=== PATIENT | male | born 1925 | race Caucasian/White ===

== ENCOUNTER 2016-03-25 15:40 | Inpatient (IN) | payer OTHER, MEDICARE ==
--- NOTE | 2016-03-25 16:04 | CPEKG ---
Heart Rate: 145 RR Interval: 414 P-R Interval: 168 QRSD Interval: 134 QT Interval: 340 QTC Interval: 528 P Lapel: 0 QRS Lapel: 100 T Wave Lapel: -30 EKG Severity - ABNORMAL ECG - EKG Impression: SINUS TACHYCARDIA WITH IRREGULAR RATE 98-170 EKG Impression: RBBB AND LPFB Electronically Signed By: Dion Richardson 25-Mar-2016 22:42:19
--- NOTE | 2016-03-25 16:09 | EDPHY ---
HPI/HX/ROS/PE/MDM Narrative: CHIEF COMPLAINT: Dyspnea HPI: The patient is an 89 y/o male, with an extensive cardiac history, complaining of shortness of breath for a long time but worse in the last few days. He has a history of atrial fibrillation, CAD, severe aortic stenosis, COPD , and recent valve replacement by [facility]. He says, "I've felt bad for quite a while," but his dyspnea has worsened recently. He denies associated chest pain, palpitations, or fever. When asked if he is complaint with his medications, he states, "I don't know, I take so damn many." Further history limited as patient is a poor historian. REVIEW OF SYSTEMS: Aside from elements discussed in the HPI, a comprehensive 10-point review of systems was reviewed and is negative. PMH: Recent valve replacement, atrial fibrillation with RVR, hypertension, chronic combined systolic and diastolic CHF, COPD, CAD, severe aortic stenosis, suspected chronic respiratory failure, pacemaker Prior medical records reviewed including admission 01/15/16 for shortness of breath. SOCIAL HISTORY: Lives in [place] with granddaughter. Retired. 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 Crystal/"some lady in [place]" PHYSICAL EXAM: General:Patient is alert, in no acute distress. ENT:Eyes are normal to inspection. ENT inspection normal. Neck: Normal inspection. Full range of motion. Respiratory:No respiratory distress. Breath sounds normal bilaterally. Cardiovascular: Rapid irregular rate and rhythm. Strong peripheral pulses. Normal cap refill. Abdomen:The abdomen is nontender to palpation. There are no peritoneal signs. There are normal bowel sounds. Back: Normal to inspection. No tenderness to palpation. Skin: Normal color. No rash. Warm and dry. Extremities: 1-2+ pedal edema bilaterally. Full range of motion. Neuro: Oriented x3. Normal motor function. Normal sensory function. ED Course: IV established. Labs drawn including CBC, CHEM, troponin, BNP. 1L IV NS administered. Chest x-ray and EKG ordered. The 12 lead EKG was interpreted by myself. See hard copy and/or "tracemaster" electronic copy for interpretation. Study: Chest x-ray Indication: Dyspnea Results: Chest x-ray was obtained. The results of the study are 1. Probable congestive heart failure. 2. Pacemaker without pneumothorax. The study was read by the radiologist, Dr. Ozuna. I viewed the images myself on the PACS system. 1705: RN assessed patient and found his effective heart rate to be in the 60-70s , while his EKG shows rate around 120. Spoke with Dr. Alfonso, [facility], he was unable to locate records regarding patient's pacemaker. Patient has [employer] pacemaker. Will contact them for information. MDM: This patient presents with dyspnea. He is quite a poor historian and is unable to specifically characterized this feeling or rule out other potential associated symptoms. On exam, he is not hypoxic but does appear to be in rapid atrial fibrillation. His pacemaker was interrogated which reveals episodes of rapid ventricular rate. This is a ventricular lead only so it is unclear if the patient had any other additional atrial arrhythmias. 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 I see no evidence of pneumonia, pulmonary embolus , pneumothorax or florid CHF. I think the patient would benefit from an observation stay in the hospital to control his rapid rate. - Data Points Laboratory Results: Laboratory Results 03/25/16 16:00 03/25/16 16:00 03/25/16 16:00 WBC 5.21 10^3/uL (3.80-9.50) RBC 3.53 L 10^6/uL (4.40-6.38) Hgb 11.5 L g/dL (13.7-17.5) Hct 34.0 L % (40.0-51.0) MCV 96.3 fL (81.5-99.8) MCH 32.6 pg (27.9-34.1) MCHC 33.8 g/dL (32.4-36.7) RDW 17.3 H % (11.5-15.2) Plt Count 79 L 10^3/uL (150-400) MPV 11.4 fL (8.7-11.7) Neut % (Auto) 90.3 H % (39.3-74.2) Lymph % (Auto) 3.6 L % (15.0-45.0) Webster % (Auto) 4.4 L % (4.5-13.0) Eos % (Auto) 0.0 L % (0.6-7.6) Baso % (Auto) 0.2 L % (0.3-1.7) Nucleat RBC Rel Count 0.0 % (0.0-0.2) Absolute Neuts (auto) 4.70 10^3/uL (1.70-6.50) Absolute Lymphs (auto) 0.19 L 10^3/uL (1.00-3.00) Absolute Monos (auto) 0.23 L 10^3/uL (0.30-0.80) Absolute Eos (auto) 0.00 L 10^3/uL (0.03-0.40) Absolute Basos (auto) 0.01 L 10^3/uL (0.02-0.10) Absolute Nucleated RBC 0.00 10^3/uL (0-0.01) Immature Gran % 1.5 H % (0.0-1.1) Immature Gran # 0.08 10^3/uL (0.00-0.10) Sodium 139 mEq/L (134-144) Potassium 4.5 mEq/L (3.5-5.2) Chloride 99 mEq/L (97-110) Carbon Dioxide 25 mEq/l (22-31) Anion Gap 15 mEq/L (8-16) BUN 30 H mg/dL (7-23) Creatinine 0.9 mg/dL (0.7-1.3) Estimated GFR > 60 Glucose 217 H mg/dL (70-100) Calcium 8.9 mg/dL (8.5-10.4) Troponin I 0.015 ng/mL (0-0.034) NT-Pro-B Natriuret Pep 1900 H pg/mL (0-450) Medications Given: Discontinued Medications Diltiazem HCl (Cardizem 25 Mg/5 Ml Vial) 10 mg IVP EDNOW ONE Stop: 03/25/16 16:53 Last Admin: 03/25/16 17:53 Dose: Not Given Diltiazem HCl (Cardizem 25 Mg/5 Ml Vial) 10 mg IVP EDNOW ONE Stop: 03/25/16 19:32 Last Admin: 03/25/16 20:07 Dose: 10 mg Diltiazem HCl 125 mg/ Dextrose 150 mls @ 0 mls/hr IV EDNOW ONE; As Directed PRN Reason: Protocol Stop: 03/25/16 19:58 Last Admin: 03/25/16 20:29 Dose: 150 mls General Time Seen by Provider: 03/25/16 15:55 Initial Vital Signs: Initial Vital Signs Temperature (C) 36.6 C 03/25/16 15:44 Heart Rate 76 03/25/16 15:44 Respiratory Rate 18 03/25/16 15:44 Blood Pressure 127/99 H 03/25/16 15:44 O2 Sat (%) 93 03/25/16 15:44 O2 Delivery Mode Room Air O2 (L/minute) 2 Allergies/Adverse Reactions: No Known Allergies Allergy (Verified 03/25/16 15:41) Home Medications: Medication Instructions Recorded Acetaminophen [Tylenol 325mg (*)] 650 mg PO BID 01/15/16 Allopurinol 300 mg PO DAILY 01/15/16 Metoprolol Tartrate 50 mg PO BID 01/15/16 Terazosin HCl [Hytrin 5 MG (*)] 10 mg PO DAILY 01/15/16 predniSONE [predniSONE TAPER] 1 each PO .TAPER 01/15/16 Albuterol [Proventil Inhaler HFA 1 - 2 puffs IH Q4H #1 mdi 01/20/16 (*)] Tiotropium Inhaler [Spiriva 18 mcg IH DAILY #1 mdi 01/20/16 Handihaler] Warfarin Sodium [Coumadin 5MG (*)] 7.5 mg PO DAILY16 #30 tab 01/20/16 Aspirin [Aspirin 81mg (*)] 81 mg PO DAILY #30 tab 01/21/16 Atorvastatin Calcium [Lipitor 40 40 mg PO DAILY #30 tab 01/21/16 mg (*)] Doxycycline Hyclate 03/25/16 Lasix 03/25/16 Departure - Departure Report Scribed for: Dion Richardson Report Scribed by: Rola Jordan Date of Report: 03/25/16 Time of Report: 16:22 Physician Review and Approval Statement: Portions of this note were transcribed by an ED scribe. I personally performed the history, physical exam, and medical decision making; and confirm the accuracy of the information in the transcribed note.
[2016-03-25 16:12] LABS: % IMMATURE GRANULYOCYTES 1.5 % (0.0-1.1); ABSOLUTE IMMATURE GRANULOCYTES 0.08 10^3/uL (0.00-0.10); ADD DIFF? NO; ADD MORPH? NO; ADD SCAN? NO; ATYPICAL LYMPHOCYTE FLAG 0 (0-99); FRAGMENT RBC FLAG 0 (0-99); HEMOGLOBIN 11.5 g/dL (13.7-17.5); LEFT SHIFT FLG 40 (0-99); LIPEMIA HEMOLYSIS FLAG 90 (0-99); MEAN CELL HEMOGLOBIN 32.6 pg (27.9-34.1); MEAN CELL HEMOGLOBIN CONCENTR. 33.8 g/dL (32.4-36.7); MEAN CELL VOLUME 96.3 fL (81.5-99.8); MEAN PLATELET VOLUME 11.4 fL (8.7-11.7); PLATELET CLUMPS FLAG 0 (0-99); PLATELET COUNT 79 10^3/uL (150-400); RED BLOOD CELL COUNT 3.53 10^6/uL (4.40-6.38); RED CELL DISTRIBUTION WIDTH 17.3 % (11.5-15.2)
[2016-03-25 16:22] LABS: ANION GAP 15 mEq/L (8-16); CALCIUM 8.9 mg/dL (8.5-10.4); CARBON DIOXIDE 25 mEq/l (22-31); CHLORIDE 99 mEq/L (97-110); CREATININE 0.9 mg/dL (0.7-1.3); GLOMERULAR FILTRATION RATE > 60; GLUCOSE 217 mg/dL (70-100); POTASSIUM 4.5 mEq/L (3.5-5.2); SODIUM 139 mEq/L (134-144)
[2016-03-25 16:34] LABS: TROPONIN I 0.015 ng/mL (0-0.034)
[2016-03-25] MEDS ORDERED: DILTIAZEM 25 MG/5 ML VIAL IVP ONE ×2 (16:52→19:31)
--- NOTE | 2016-03-25 17:07 | CPEKG ---
Heart Rate: 128 RR Interval: 469 P-R Interval: 118 QRSD Interval: 140 QT Interval: 356 QTC Interval: 520 P Naylor: 0 QRS Naylor: 98 T Wave Naylor: -24 EKG Severity - ABNORMAL ECG - EKG Impression: SINUS TACHYCARDIA EKG Impression: RBBB AND LPFB Electronically Signed By: Dion Richardson 25-Mar-2016 22:41:54
--- NOTE | 2016-03-25 17:46 | DX ---
Chest, Two Views at 1557 hours History: Chest pain. Comparison: December 2015 Findings: Cardiac silhouette is moderately enlarged. Left chest wall. Unipolar pacemaker in the right ventricle. Bilateral shoulder arthroplasties. Increased interstitial markings suggesting interstitia l pulmonary edema. No pleural effusion. Thoracolumbar kyphosis. Stent overlying the heart on the late ral view not definitely identified on AP upright view. Impression: 1. Probable congestive heart failure. 2. Pacemaker without pneumothorax.
[2016-03-25] MEDS ORDERED: DILTIAZEM 125 MG in D5W 125 ML IV ONE (19:57)
[2016-03-25] MEDS ORDERED: ONDANSETRON 4 MG/2 ML VIAL IVP PRN (21:30)
[2016-03-25] MEDS ORDERED: ONDANSETRON DISINTEGRATING 4 MG TAB PO PRN (21:30)
[2016-03-25] MEDS ORDERED: ACETAMINOPHEN 325 MG TAB PO PRN (21:30)
[2016-03-25] MEDS ORDERED: FUROSEMIDE 20 MG/2 ML VIAL IVP ONE (21:41)
[2016-03-25] MEDS ORDERED: DILTIAZEM 125 MG in D5W 125 ML IV SCH (22:00)
--- NOTE | 2016-03-25 22:03 | GHP ---
[f rep st] HISTORY AND PHYSICAL DATE OF ADMISSION: 03/25/2016 CHIEF COMPLAINT: Shortness of breath and weakness. HISTORY OF PRESENT ILLNESS: This is an 89-year-old male who has a history of atrial fibrillation for many years. He also has a history of aortic stenosis and in early February had a TAVR procedure. Th is was followed by a pacemaker placement 2 weeks later. These were both done I believe at [facility] , and then was at [facility]. He then apparently went to rehab, and then chavez s only been home for a few days, but now comes in with shortness of breath with exertion and at rest. He is also complaining of some worsening lower extremity edema. No chest pain. He does not notice his heart racing or any heart palpitations. No fevers or chills or cough. REVIEW OF SYSTEMS: A 10-point review of systems is negative. PAST MEDICAL HISTORY: 1. Aortic stenosis with recent TAVR procedure. 2. Atrial fibrillation with previous hospitalizations for rapid ventricular response. 3. Hypertension. 4. Diastolic dysfunction. 5. Chronic obstructive pulmonary disease. 6. History of coronary artery disease status post stenting. MEDICATIONS: Reviewed. ALLERGIES: None. FAMILY HISTORY: Both parents are . SOCIAL HISTORY: No smoking or alcohol, lives with his granddaughter. PHYSICAL EXAM: VITAL SIGNS: Afebrile, blood pressure is 130/77, heart rate is 122, oxygen saturatio n 92% on 2 L. GENERAL: Patient is well developed in no apparent distress. HEENT: Anicteric sclerae. Extraocular movements intact. Moist mucous membranes. NECK: Supple. No thyromegaly. LUNGS: Good effort. Clear to auscultation, but decreased breath sounds. CARDIOVASCULAR: Irregularly irregular. Tachycardic. No murmurs, rubs, or gallops. ABDOMEN: Positive bowel sounds. Soft, nontender, nondistended. No hepatosplenomegaly. EXTREMITIES: 1+ pitting edema. NEUROLOGIC: Alert and oriented x3. Moving all 4 extremities equally. PSYCH: Normal mood and affect. LABS: White count 5, hemoglobin 11, platelets are 79, but this appears to be chronically low. Chemi stry shows creatinine 0.9. BNP is 1900. Troponin 0.015. Chest x-ray shows probable CHF. EKG perso grupo reviewed and interpreted shows right bundle branch block with irregular tachycardia. ASSESSMENT: An 89-year-old male with a history of recent transcatheter aortic valve replacement proc edure and pacemaker placement presenting with rapid atrial fibrillation. PLAN: 1. Atrial fibrillation with rapid ventricular response. Will continue diltiazem. 2. Acute on chronic diastolic heart failure. Will give Lasix. 3. Recent TAVR procedure. Will probably need to get old records from [facility] and perhaps repea t echocardiogram here. 4. History of coronary artery disease. Troponin is not elevated at this time. Will check it again in the morning. 5. History of COPD, although has decreased breath sounds, and he is not wheezing. 6. Patient is a DNR. /[id number]/MODL
[2016-03-26 05:30] LABS: % IMMATURE GRANULYOCYTES 1.6 % (0.0-1.1); ABSOLUTE IMMATURE GRANULOCYTES 0.11 10^3/uL (0.00-0.10); ADD DIFF? NO; ADD MORPH? NO; ADD SCAN? NO; ATYPICAL LYMPHOCYTE FLAG 0 (0-99); FRAGMENT RBC FLAG 0 (0-99); HEMATOCRIT 33.1 % (40.0-51.0); HEMOGLOBIN 11.1 g/dL (13.7-17.5); LEFT SHIFT FLG 70 (0-99); LIPEMIA HEMOLYSIS FLAG 80 (0-99); MEAN CELL HEMOGLOBIN 31.9 pg (27.9-34.1); MEAN CELL HEMOGLOBIN CONCENTR. 33.5 g/dL (32.4-36.7); MEAN CELL VOLUME 95.1 fL (81.5-99.8); MEAN PLATELET VOLUME 10.4 fL (8.7-11.7); PLATELET CLUMPS FLAG 0 (0-99); PLATELET COUNT 76 10^3/uL (150-400); RED BLOOD CELL COUNT 3.48 10^6/uL (4.40-6.38); RED CELL DISTRIBUTION WIDTH 17.2 % (11.5-15.2)
[2016-03-26 05:39] LABS: INR 1.26 (0.83-1.16); PROTIME(PATIENT) 15.8 SEC (12.0-15.0)
[2016-03-26 05:47] LABS: ALANINE AMINOTRANSFERASE 35 IU/L (21-72); ALBUMIN 3.7 g/dL (3.5-5.0); ANION GAP 12 mEq/L (8-16); ASPARTATE AMINOTRANSFERASE 22 IU/L (17-59); BILIRUBIN,TOTAL 1.5 mg/dL (0.1-1.4); CALCIUM 8.7 mg/dL (8.5-10.4); CARBON DIOXIDE 29 mEq/l (22-31); CHLORIDE 99 mEq/L (97-110); CREATININE 0.9 mg/dL (0.7-1.3); GLOMERULAR FILTRATION RATE > 60; GLUCOSE 106 mg/dL (70-100); POTASSIUM 3.9 mEq/L (3.5-5.2); SODIUM 140 mEq/L (134-144); TOTAL PROTEIN 6.3 g/dL (6.3-8.2)
[2016-03-26 05:55] LABS: TROPONIN I 0.015 ng/mL (0-0.034)
[2016-03-26] MEDS ORDERED: FUROSEMIDE 20 MG/2 ML VIAL IVP SCH (09:00)
[2016-03-26] MEDS: ENOXAPARIN 40 MG/0.4 ML SYR SC SCH (09:58)
[2016-03-26] MEDS ORDERED: MAGNESIUM HYDROXIDE 30 ML UDCUP PO PRN (10:19)
[2016-03-26] MEDS ORDERED: ACETAMINOPHEN 325 MG TAB PO PRN (10:19)
--- NOTE | 2016-03-26 10:36 | ECHO ---
[id number] + + [id number] : : [place] [id number] : : [phone] + + Adult Echocardiographic Report + + :Name: SALUD STANLEY GStudy Date: 03/26/2016 08:32 AM BP: 124/75 mmHg : : Hospital Admission Number: [id number] Loc ation: 214: :: 1925 Gender: Male Height: 68 in : :Age: 89 yrs Race: WH Weight: 260 lb : :Reason For Study: CHF : : BSA: 2.3 me ters2 : :History: S/P TAVR and pacemaker : + + MMode/2D Measurements & Calculations IVSd: 1.4 cm LVIDd: 4.7 cm FS: 41.6 % Ao root diam: 3.7 cm LVPWd: 1.2 cm LVIDs: 2.7 cm EDV(Teich): 100.4 ml ESV(Teich): 27.5 ml EF(Teich): 72.6 % LVOT diam: 2.2 cm LVOT area: 3.8 cm2 Normal Measurement Values: + + :LVIDd (3.5-5.7cm) IVSd (0.6-1.1cm) LVPWd (0.6-1.1cm) Aortic Root (2.0-3.7cm)Left Atrium (1.5-4.0cm): :LV Vol(d) (76-115ml) LV Vol(s) (29-48ml) Ejec Fraction (50-65%)PV Joshua (0.6- 1.2m/s) TV Joshua (0.4-1.0m/s) : :MV E Joshua (0.8-1.0m/s)MV A Joshua (0.3-1.0m/s)LVOT Joshua (0.7-1.2m/s) Asc Ao Joshua ( 0.9-1.8m/s) : + + Doppler Measurements & Calculations MV E max joshua: Ao mean PG: LV V1 mean PG: SV(LVOT): 122.9 cm/sec 12.2 mmHg 1.9 mmHg 56.2 ml Ao V2 mean: LV V1 mean: 168.2 cm/sec 65.0 cm/sec Ao V2 VTI: 37.7 cm LV V1 VTI: 14.9 cm OLIVIA(I,D): 1.5 cm2 PA V2 max: TR max joshua: 158.1 cm/sec 278.3 cm/sec PA max P.1 mmHg TR max P.2 mmHg RAP systole: 10.0 mmHg RVSP(TR): 41.2 mmHg Left Ventricle The left ventricle is normal in size and function. There is moderate concentric left ventricular hypertrophy. Ejection Fraction = 65-70%. Diastolic Function Indeterminate due to afib.. No regional wall motion abnormalities noted. Right Ventricle The right ventricle is grossly normal size. There is a pacemaker lead in the right ventricle. Grossly normal systolic function. Atria The left atrium is severely dilated. The Left Atrial Volume is 74 ml/m2. The right atrium is mildly dilated. A dilated inferior vena cava suggests increased right atrial pressure. Mitral Valve The mitral valve is normal in structure and function. There is mild mitral annular calcification. There is no mitral valve stenosis. There is trace mitral regurgitation. Tricuspid Valve The tricuspid valve is normal in structure and function. There is no tricuspid stenosis. There is trace to mild tricuspid regurgitation. Right ventricular systolic pressure is 41mmHg. There is Doppler evidence for mild to moderate pulmonary hypertension. Aortic Valve S/P TAVR. Mean gradient across the valve 12mmHg and peak gradient 18-20mmHg. Trace to mild aortic regurgitation. Pulmonic Valve The pulmonic valve is not well visualized. There is no pulmonic valvular regurgitation. Great Vessels Mild aortic root dilatation. Pericardium/Pleural Fat pad versus trivial pericardial effusion. Conclusion The study was technically difficult. Patients heart rate during study 103-120bpm. The left ventricle is normal in size and function. There is moderate concentric left ventricular hypertrophy. Ejection Fraction = 65-70%. Diastolic Function Indeterminate due to afib.. The left atrium is severely dilated. The Left Atrial Volume is 74 ml/m2. The right atrium is mildly dilated. A dilated inferior vena cava suggests increased right atrial pressure. There is trace mitral regurgitation. There is trace to mild tricuspid regurgitation. Right ventricular systolic pressure is 41mmHg. There is Doppler evidence for mild to moderate pulmonary hypertension. S/P TAVR. Mean gradient across the valve 12mmHg and peak gradient 18-20mmHg. Trace to mild aortic regurgitation. Mild aortic root dilatation. Fat pad versus trivial pericardial effusion. Final Reading Physician: Nadiya Beck signed on 03/26/2016 10:35 AM Ordering Physician: Kolby Nath Performed By: Lorena Meng
[2016-03-26] MEDS: ALBUTEROL 3 ML DEYVIAL IH PRN ×3 (11:02→22:25)
[2016-03-26] MEDS: predniSONE 10 MG TAB PO SCH (11:15)
[2016-03-26] MEDS: TERAZOSIN HCL 5 MG CAP PO SCH (11:15)
[2016-03-26] MEDS: METOPROLOL TARTRATE 50 MG TAB PO SCH ×2 (11:15→20:40)
--- NOTE | 2016-03-26 11:16 | HOSPPROG ---
Hospitalist Progress Note Assessment/Plan: 89 yo M w AF, s/p TAVR AF: rapid improved on dilt gtt has edema but unclear if wet- may be dry 1. ween dilt gtt 2. stop IV diuretics 3. resume po diuretics s/p TAVR: looks good on echo cough: productive cough w clear cxr (interp by me) add mucinex proph: lmwh dispo: inpt Subjective: case discussed w dr carnes. admit ekg w rapid AF (interp by me) Objective: Vital Signs Temp Pulse Resp BP Pulse Ox 36.3 C 122 H 21 H 124/75 H 90 L 03/26/16 07:05 03/26/16 08:04 03/26/16 07:05 03/26/16 07:05 03/26/16 07:05 Laboratory Results 03/26/16 05:05 03/26/16 05:05 03/25/16 03/26/16 03/27/16 05:59 05:59 05:59 Intake Total 520 360 Output Total 1500 175 Balance -980 185 PT 15.8 SEC (12.0-15.0) H 03/26/16 05:05 INR 1.26 (0.83-1.16) H 03/26/16 05:05 - Physical Exam Constitutional: no apparent distress, appears nourished Eyes: PERRL, anicteric sclera Ears, Nose, Mouth, Throat: moist mucous membranes, hearing normal Cardiovascular: irregularly irregular, No systolic murmur Respiratory: no respiratory distress, no rales or rhonchi Gastrointestinal: normoactive bowel sounds, soft, non-tender abdomen Genitourinary: No rodriguez in urethra Skin: warm, normal color Musculoskeletal: full muscle strength, no muscle tenderness Neurologic: AAOx3 Psychiatric: interacting appropriately Lymph, Heme, Immunologic: no cervical LAD ICD10 Worksheet Patient Problems: Problems Problem Status Diagnosed Acute exacerbation of congestive heart failure Acute Atrial fibrillation with RVR Acute Elevated troponin Acute
[2016-03-26] MEDS: ALBUTEROL 60 PUFFS/8 GM MDI IH SCH ×4 (11:17→22:25)
[2016-03-26] MEDS: TIOTROPIUM INHALER 18 MCG/DOSE 5 DOSE/MDI IH SCH (11:17)
--- NOTE | 2016-03-26 12:51 | PDCARCONS ---
Cardiology Consult Reason for Consult: congestive heart failure Chief Complaint: shortness of breath, PND, needs to sleep in a chair Requesting Physician: Dr. Orlando History of Present Illness: patient is an 89-year-old male well known to our service. He is status post transcutaneous aortic valve replacement done in the setting of worsening heart failure. Coronary angiogram done 01/15/2016 revealed branch vessel coronary artery disease with ejection fraction of 35-40%. He was felt to have low output aortic valve stenosis and underwent a successful transcutaneous replacement. Since that time he has struggled with shortness of breath. He comes into the hospital with paroxysmal nocturnal dyspnea and the need to sleep in a chair. He denies chest pain. He has had no syncope or near syncope. He denies fever or chills. He does have a significant cough with wheezing. This is nonproductive. medications in the hospital Medications Generic Name Dose Route Start Last Admin Trade Name Freq PRN Reason Stop Dose Admin Terazosin HCl 10 mg 03/26/16 10:30 03/26/16 11:15 Hytrin PO 09/22/16 10:29 10 mg DAILY [facility] Enoxaparin Sodium 40 mg 03/26/16 09:00 03/26/16 09:58 Lovenox SC 09/22/16 08:59 40 mg DAILY [facility] Furosemide 40 mg 03/27/16 09:00 Lasix PO 09/23/16 08:59 DAILY [facility] Metoprolol Tartrate 50 mg 03/26/16 10:30 03/26/16 11:15 Lopressor PO 09/22/16 10:29 50 mg BID [facility] Prednisone 10 mg 03/26/16 10:30 03/26/16 11:15 Prednisone PO 09/22/16 10:29 10 mg DAILY [facility] Albuterol 3 ml 03/26/16 10:19 03/26/16 11:02 Proventil Neb 09/22/16 10:18 3 ml QID PRN Short of Breath/Dyspnea Albuterol 1 - 2 puffs 03/26/16 10:30 03/26/16 11:17 Proventil Inhaler 09/22/16 10:29 Not Given Q4H [facility] Tiotropium [place] 18 mcg 03/26/16 10:30 03/26/16 11:17 Spiriva Handihaler 09/22/16 10:29 Not Given DAILY [facility] History Information - Allergies/Home Medication List Allergies/Adverse Reactions: No Known Allergies Allergy (Verified 03/25/16 15:41) Home Medications: Acetaminophen [Tylenol 325mg (*)] 650 mg PO Q4H PRN 01/15/16 [Last Taken ] Terazosin HCl [Hytrin 5 MG (*)] 10 mg PO DAILY 01/15/16 [Last Taken 01/15/16] Furosemide [Lasix 40 MG (*)] 40 mg PO DAILY 03/25/16 [Last Taken Unknown] Albuterol [Proventil Neb] 3 ml IH QID PRN 03/26/16 [Last Taken Unknown] Allopurinol [Allopurinol 300 MG (RX)] 300 mg PO DAILY 03/26/16 [Last Taken Unknown] Docusate Sodium [Colace 100 MG (*)] 100 mg PO BID 03/26/16 [Last Taken Unknown] Magnesium Hydroxide [Milk of Magnesia] 30 ml PO PRN PRN 03/26/16 [Last Taken Unknown] Metoprolol Tartrate [Lopressor 50 mg (*)] 50 mg PO BID 03/26/16 [Last Taken Unknown] Potassium Cl [Klor-Con] 10 meq PO DAILY 03/26/16 [Last Taken Unknown] predniSONE [Prednisone] 10 mg PO DAILY 03/26/16 [Last Taken Unknown] I have personally reviewed and updated: family history, medical history, social history, surgical history - Past Medical History atrial fibrillation, coronary artery disease, CHF, COPD - Surgical History Reports: coronary stent Additional surgical history: status post total hip replacement 2006. History of rotator cuff repair. History of PCI of the circumflex 1998. History of transcutaneous aortic valve 2016. - Family History Positive for: non-pertinent - Social History Smoking Status: Former smoker Cardiac History - Cardiac History Past Cardiac History: CAD, PCI, AVR Cardiac Risk Factors: hypertension (>140/90), lipidemia, age > 65, male Associated Symptoms: cough, shortness of breath, weakness Age in Years: 75 or older Sex: Male Congestive Heart Failure History: Yes Hypertension History: Yes Physical Exam Temp Pulse Resp BP Pulse Ox 36.3 C 118 H 23 H 135/64 H 93 03/26/16 07:05 03/26/16 11:33 03/26/16 11:33 03/26/16 11:33 03/26/16 11:33 O2 (L/minute) 3 Constitutional: chronically ill appearing, obese Eyes: pale conjunctiva Ears, Nose, Mouth, Throat: moist mucous membranes Cardiovascular: irregularly irregular, No JVD Peripheral Pulses: 1+: carotid (R), carotid (L) Respiratory: reduced air movement, expiratory wheeze, inspiratory crackles, bronchial breath sounds, rhonchi Gastrointestinal: normoactive bowel sounds, soft, non-tender abdomen Genitourinary: no bladder fullness Skin: warm Musculoskeletal: full muscle strength Neurologic: AAOx3 Psychiatric: interacting appropriately, not anxious Lymph, Heme, Immunologic: no cervical LAD, no supraclavicular LAD Lab and Imaging 03/26/16 05:05 03/26/16 05:05 WBC 6.72 10^3/uL (3.80-9.50) 03/26/16 05:05 RBC 3.48 10^6/uL (4.40-6.38) L 03/26/16 05:05 Hgb 11.1 g/dL (13.7-17.5) L 03/26/16 05:05 Hct 33.1 % (40.0-51.0) L 03/26/16 05:05 MCV 95.1 fL (81.5-99.8) 03/26/16 05:05 MCH 31.9 pg (27.9-34.1) 03/26/16 05:05 MCHC 33.5 g/dL (32.4-36.7) 03/26/16 05:05 RDW 17.2 % (11.5-15.2) H 03/26/16 05:05 Plt Count 76 10^3/uL (150-400) L 03/26/16 05:05 MPV 10.4 fL (8.7-11.7) 03/26/16 05:05 Neut % (Auto) 71.6 % (39.3-74.2) 03/26/16 05:05 Lymph % (Auto) 14.1 % (15.0-45.0) L 03/26/16 05:05 Castro % (Auto) 12.2 % (4.5-13.0) 03/26/16 05:05 Eos % (Auto) 0.4 % (0.6-7.6) L 03/26/16 05:05 Baso % (Auto) 0.1 % (0.3-1.7) L 03/26/16 05:05 Nucleat RBC Rel Count 0.0 % (0.0-0.2) 03/26/16 05:05 Absolute Neuts (auto) 4.80 10^3/uL (1.70-6.50) 03/26/16 05:05 Absolute Lymphs (auto) 0.95 10^3/uL (1.00-3.00) L 03/26/16 05:05 Absolute Monos (auto) 0.82 10^3/uL (0.30-0.80) H 03/26/16 05:05 Absolute Eos (auto) 0.03 10^3/uL (0.03-0.40) 03/26/16 05:05 Absolute Basos (auto) 0.01 10^3/uL (0.02-0.10) L 03/26/16 05:05 Absolute Nucleated RBC 0.00 10^3/uL (0-0.01) 03/26/16 05:05 Immature Gran % 1.6 % (0.0-1.1) H 03/26/16 05:05 Immature Gran # 0.11 10^3/uL (0.00-0.10) H 03/26/16 05:05 PT 15.8 SEC (12.0-15.0) H 03/26/16 05:05 INR 1.26 (0.83-1.16) H 03/26/16 05:05 Sodium 140 mEq/L (134-144) 03/26/16 05:05 Potassium 3.9 mEq/L (3.5-5.2) 03/26/16 05:05 Chloride 99 mEq/L (97-110) 03/26/16 05:05 Carbon Dioxide 29 mEq/l (22-31) 03/26/16 05:05 Anion Gap 12 mEq/L (8-16) 03/26/16 05:05 BUN 30 mg/dL (7-23) H 03/26/16 05:05 Creatinine 0.9 mg/dL (0.7-1.3) 03/26/16 05:05 Estimated GFR > 60 03/26/16 05:05 Glucose 106 mg/dL (70-100) H 03/26/16 05:05 Calcium 8.7 mg/dL (8.5-10.4) 03/26/16 05:05 Total Bilirubin 1.5 mg/dL (0.1-1.4) H 03/26/16 05:05 AST 22 IU/L (17-59) 03/26/16 05:05 ALT 35 IU/L (21-72) 03/26/16 05:05 Alkaline Phosphatase 89 IU/L (38-126) 03/26/16 05:05 Troponin I 0.015 ng/mL (0-0.034) 03/26/16 05:05 NT-Pro-B Natriuret Pep 1900 pg/mL (0-450) H 03/25/16 16:00 Total Protein 6.3 g/dL (6.3-8.2) 03/26/16 05:05 Albumin 3.7 g/dL (3.5-5.0) 03/26/16 05:05 Laboratory Tests 03/25/16 03/26/16 16:00 05:05 Sodium 139 140 Creatinine 0.9 Troponin I 0.015 0.015 NT-Pro-B Natriuret Pep 1900 H Chest X-ray Interpretation: other ( cardiomegaly, pacemaker with single lead. Bilateral mild infiltrates with elevated right hemidiaphragm) EKG additional interpertation: atrial fibrillation with bifascicular block Echocardiogram: normally functioning transcutaneous aortic valve. Hyperdynamic left ventricle with normalized ejection fraction. Biatrial enlargement. A/P Assessment: Impression: 89-year-old male with respiratory complaints of dry cough, shortness of breath, new onset orthopnea. Examination suggest primary respiratory etiology with likely exacerbation of chronic bronchitis with decreased breath movement expiratory inspiratory wheezing and rhonchi. Echocardiogram shows dramatic improvement in left ventricular systolic function to the normal range. He has atrial fibrillation which was not well rate controlled during initial presentation but is improving slowly. There is no evidence of acute coronary syndrome. Plan: Recommendations are for aggressive treatment for underlying COPD with consideration for steroid taper, continued beta agonist therapy with clinical follow-up. Patient is clearly at risk for now diastolic heart failure versus heart failure related to small vessel disease in the setting of recent respiratory illness. Recommendations are for gentle diuresis. Continued secondary prevention for underlying coronary disease. Anticoagulation for chronic atrial fibrillation. He is not currently on statin therapy despite known longstanding coronary artery disease, diabetes, dyslipidemia. Will reassess lipids. Not sure the role in this 89-year-old male.
[2016-03-26 20:29] LABS: ALKALINE PHOSPHATASE 42 IU/L (38-126)
[2016-03-26] MEDS: DOCUSATE SODIUM 100 MG CAP PO SCH (20:41)
[2016-03-27] MEDS: ALBUTEROL 60 PUFFS/8 GM MDI IH SCH ×6 (02:36→21:29)
[2016-03-27] MEDS: METOPROLOL TARTRATE 50 MG TAB PO SCH ×2 (08:43→21:47)
[2016-03-27] MEDS: FUROSEMIDE 40 MG TAB PO SCH (08:46)
[2016-03-27] MEDS: DOCUSATE SODIUM 100 MG CAP PO SCH ×2 (08:47→21:47)
[2016-03-27] MEDS: predniSONE 10 MG TAB PO SCH (08:47)
[2016-03-27] MEDS: TERAZOSIN HCL 5 MG CAP PO SCH (08:47)
[2016-03-27] MEDS: POTASSIUM CL 10 MEQ TAB PO SCH (08:48)
[2016-03-27] MEDS: ENOXAPARIN 40 MG/0.4 ML SYR SC SCH (08:48)
[2016-03-27] MEDS: ALLOPURINOL 300 MG TAB PO SCH (08:48)
[2016-03-27] MEDS: ALBUTEROL 3 ML DEYVIAL IH PRN ×3 (08:50→16:59)
[2016-03-27] MEDS: TIOTROPIUM INHALER 18 MCG/DOSE 5 DOSE/MDI IH SCH (08:52)
[2016-03-27] MEDS ORDERED: FUROSEMIDE 40 MG TAB PO SCH (09:00)
[2016-03-27 10:06] LABS: ANION GAP 15 mEq/L (8-16); CALCIUM 8.8 mg/dL (8.5-10.4); CARBON DIOXIDE 25 mEq/l (22-31); CHLORIDE 96 mEq/L (97-110); CREATININE 0.8 mg/dL (0.7-1.3); GLOMERULAR FILTRATION RATE > 60; GLUCOSE 188 mg/dL (70-100); POTASSIUM 3.8 mEq/L (3.5-5.2); SODIUM 136 mEq/L (134-144)
[2016-03-27] MEDS ORDERED: METOPROLOL TARTRATE 25 MG TAB PO ONE (14:54)
[2016-03-27] MEDS ORDERED: predniSONE 20 MG TAB PO ONE (14:54)
--- NOTE | 2016-03-27 14:58 | HOSPPROG ---
Hospitalist Progress Note Assessment/Plan: 89 yo M w AF, s/p TAVR AF: intermittently rapid posibly 2/2 underlying pulm process give add'l po metoprolol today follow s/p TAVR: looks good on echo cough: productive cough w clear cxr (interp by me) add mucinex given copd, add doxy, increase steroids proph: lmwh dispo: inpt Subjective: tele: AF, intermittently rapid (interp by me). case d/w dr carnes Objective: Vital Signs Temp Pulse Resp BP Pulse Ox 36.5 C 121 H 22 H 115/74 93 03/27/16 11:42 03/27/16 12:34 03/27/16 12:15 03/27/16 11:42 03/27/16 12:34 Laboratory Results 03/26/16 05:05 03/27/16 09:25 03/26/16 03/27/16 03/28/16 05:59 05:59 05:59 Intake Total 520 1530 Output Total 1500 2020 775 Balance -980 -490 -775 PT 15.8 SEC (12.0-15.0) H 03/26/16 05:05 INR 1.26 (0.83-1.16) H 03/26/16 05:05 - Physical Exam Constitutional: no apparent distress, appears nourished Eyes: PERRL, anicteric sclera Ears, Nose, Mouth, Throat: moist mucous membranes, hearing normal Cardiovascular: irregularly irregular, No systolic murmur Respiratory: other (rhoncorous w good air movement, no wheeze) Gastrointestinal: normoactive bowel sounds, soft, non-tender abdomen Genitourinary: No rodriguez in urethra Skin: warm, normal color Musculoskeletal: full muscle strength, other (minimal edema) Neurologic: AAOx3 ICD10 Worksheet Patient Problems: Problems Problem Status Diagnosed Acute exacerbation of congestive heart failure Acute Atrial fibrillation with RVR Acute Elevated troponin Acute
[2016-03-27] MEDS: DOXYCYCLINE HYCLATE 100 MG CAP/TAB PO SCH ×2 (15:17→21:47)
--- NOTE | 2016-03-27 16:05 | SOAPPROG ---
SOAP Progress Note Assessment/Plan: Assessment: 1. Respiratory failure secondary to COPD. 2. status post transcutaneous aortic valve replacement. 3. Coronary artery disease. 4. History of systolic dysfunction with normalization of ejection fraction post valve replacement. 5. Chronic atrial fibrillation. Impression: Slow and steady improvement. Difficult morning with continued respiratory difficulties. Heart rate response appropriate for degree of distress. Normally functioning aortic valve by ECHO. Normalized LV systolic function. Continue aggressive medical therapy with clinical follow-up . Will add low-dose Digoxin to enhance rate control. considerations for low-dose diltiazem. Will avoid increasing beta-blaine due to respiratory difficulty. 03/27/16 16:02 03/27/16 16:04 Subjective: feeling a bit better this afternoon. This morning patient was significantly short of breath. He denied chest pain. He continues to have orthopnea. He has had no syncope or near syncope. He has no palpitations. Objective: Vital Signs Temp Pulse Resp BP Pulse Ox 36.8 C 144 H 20 131/95 H 93 03/27/16 15:20 03/27/16 15:20 03/27/16 15:20 03/27/16 15:20 03/27/16 15:20 Laboratory Results 03/26/16 05:05 03/27/16 09:25 03/26/16 03/27/16 03/28/16 05:59 05:59 05:59 Intake Total 520 1530 Output Total 1500 2020 1125 Balance -980 -490 -1125 PT 15.8 SEC (12.0-15.0) H 03/26/16 05:05 INR 1.26 (0.83-1.16) H 03/26/16 05:05 Medications Generic Name Dose Route Start Last Admin Trade Name Freq PRN Reason Stop Dose Admin Albuterol 1 - 2 puffs 03/26/16 10:30 03/27/16 12:14 Proventil Inhaler IH 09/22/16 10:29 Not Given Q4H [facility] Furosemide 40 mg 03/27/16 09:00 03/27/16 08:46 Lasix PO 09/23/16 08:59 40 mg DAILY [facility] Metoprolol Tartrate 50 mg 03/26/16 10:30 03/27/16 08:43 Lopressor PO 09/22/16 10:29 50 mg BID [facility] Albuterol 3 ml 03/26/16 10:19 03/27/16 12:11 Proventil Neb IH 09/22/16 10:18 3 ml QID PRN Short of Breath/Dyspnea Enoxaparin Sodium 40 mg 03/26/16 09:00 03/27/16 08:48 Lovenox SC 09/22/16 08:59 40 mg DAILY [facility] ICD10 Worksheet Patient Problems: Problems Problem Status Diagnosed Acute exacerbation of congestive heart failure Acute Atrial fibrillation with RVR Acute Elevated troponin Acute Review of Systems - Review of Systems Constitutional: weakness. denies: chills, fever Respiratory: cough, shortness of breath, wheezing Cardiac: no symptoms reported Gastrointestinal/Abdominal: no symptoms reported Genitourinary: no symptoms
[2016-03-27] MEDS: DILTIAZEM 30 MG TAB PO SCH ×2 (18:04→23:52)
[2016-03-28] MEDS: ALBUTEROL 60 PUFFS/8 GM MDI IH SCH ×6 (01:07→20:35)
[2016-03-28] MEDS: DILTIAZEM 30 MG TAB PO SCH ×3 (04:47→18:01)
[2016-03-28 05:12] LABS: % IMMATURE GRANULYOCYTES 2.9 % (0.0-1.1); ABSOLUTE IMMATURE GRANULOCYTES 0.11 10^3/uL (0.00-0.10); ADD DIFF? NO; ADD MORPH? NO; ADD SCAN? NO; ATYPICAL LYMPHOCYTE FLAG 30 (0-99); FRAGMENT RBC FLAG 0 (0-99); HEMATOCRIT 31.6 % (40.0-51.0); HEMOGLOBIN 10.8 g/dL (13.7-17.5); LEFT SHIFT FLG 40 (0-99); LIPEMIA HEMOLYSIS FLAG 90 (0-99); MEAN CELL HEMOGLOBIN 32.3 pg (27.9-34.1); MEAN CELL HEMOGLOBIN CONCENTR. 34.2 g/dL (32.4-36.7); MEAN CELL VOLUME 94.6 fL (81.5-99.8); MEAN PLATELET VOLUME 10.9 fL (8.7-11.7); PLATELET CLUMPS FLAG 0 (0-99); PLATELET COUNT 62 10^3/uL (150-400); RED BLOOD CELL COUNT 3.34 10^6/uL (4.40-6.38); RED CELL DISTRIBUTION WIDTH 16.7 % (11.5-15.2)
[2016-03-28] MEDS: ALBUTEROL 3 ML DEYVIAL IH PRN ×5 (05:51→20:30)
[2016-03-28 05:52] LABS: ANION GAP 12 mEq/L (8-16); CALCIUM 8.9 mg/dL (8.5-10.4); CARBON DIOXIDE 27 mEq/l (22-31); CHLORIDE 99 mEq/L (97-110); CREATININE 0.7 mg/dL (0.7-1.3); GLOMERULAR FILTRATION RATE > 60; GLUCOSE 121 mg/dL (70-100); POTASSIUM 4.2 mEq/L (3.5-5.2); SODIUM 138 mEq/L (134-144)
[2016-03-28] MEDS: METOPROLOL TARTRATE 50 MG TAB PO SCH ×2 (08:33→19:52)
[2016-03-28] MEDS: ALLOPURINOL 300 MG TAB PO SCH (08:33)
[2016-03-28] MEDS: DOCUSATE SODIUM 100 MG CAP PO SCH ×2 (08:33→19:52)
[2016-03-28] MEDS: POTASSIUM CL 10 MEQ TAB PO SCH (08:33)
[2016-03-28] MEDS: DOXYCYCLINE HYCLATE 100 MG CAP/TAB PO SCH ×2 (08:34→19:51)
[2016-03-28] MEDS: TERAZOSIN HCL 5 MG CAP PO SCH (08:34)
[2016-03-28] MEDS: predniSONE 10 MG TAB PO SCH (08:34)
[2016-03-28] MEDS: FUROSEMIDE 40 MG TAB PO SCH (08:34)
[2016-03-28] MEDS: TIOTROPIUM INHALER 18 MCG/DOSE 5 DOSE/MDI IH SCH (09:19)
[2016-03-28] MEDS: ENOXAPARIN 40 MG/0.4 ML SYR SC SCH (09:29)
--- NOTE | 2016-03-28 10:19 | SOAPPROG ---
SOAP Progress Note Assessment/Plan: Assessment: 1. Respiratory failure secondary to COPD. 2. status post transcutaneous aortic valve replacement. 3. Coronary artery disease. 4. History of systolic dysfunction with normalization of ejection fraction post valve replacement. 5. Chronic atrial fibrillation. 6. Anemia. Impression: Slow and steady improvement. Difficult morning with continued respiratory difficulties. Heart rate response appropriate for degree of distress. Normally functioning aortic valve by ECHO. Normalized LV systolic function. Continue aggressive medical therapy with clinical follow-up . Will add low-dose Digoxin to enhance rate control. considerations for low-dose diltiazem. Will avoid increasing beta-blaine due to respiratory difficulty. 03/27/16 16:02 Impression: Continued improvement with quiet night. Biggest complaint relates to shortness of breath. He has had no palpitations or syncope. Stable vital signs with improved heart rate. Plan: Continue current medical therapy with aggressive pulmonary toilet. Rehabilitation. 03/28/16 10:17 Subjective: Feeling better. Still sleeping in a chair. No chest pain, palpitations, syncope, near syncope. Objective: Vital Signs Temp Pulse Resp BP Pulse Ox 36.3 C 90 16 120/74 93 03/28/16 07:13 03/28/16 07:13 03/28/16 07:13 03/28/16 07:13 03/28/16 09:22 Laboratory Results 03/28/16 04:24 03/28/16 04:24 03/27/16 03/28/16 03/29/16 05:59 05:59 05:59 Intake Total 1530 1020 710 Output Total 2019 1944 Balance -490 -925 710 PT 15.8 SEC (12.0-15.0) H 03/26/16 05:05 INR 1.26 (0.83-1.16) H 03/26/16 05:05 Medications Generic Name Dose Route Start Last Admin Trade Name Freq PRN Reason Stop Dose Admin Diltiazem HCl 30 mg 03/27/16 18:00 03/28/16 04:47 Cardizem Immediate Release PO 09/23/16 17:59 30 mg Q6HRS [facility] Enoxaparin Sodium 40 mg 03/26/16 09:00 03/28/16 09:29 Lovenox SC 09/22/16 08:59 Not Given DAILY [facility] Furosemide 40 mg 03/27/16 09:00 03/28/16 08:34 Lasix PO 09/23/16 08:59 40 mg DAILY [facility] Metoprolol Tartrate 50 mg 03/26/16 10:30 03/28/16 08:33 Lopressor PO 09/22/16 10:29 50 mg BID [facility] Physical Exam - Physical Exam General Appearance: alert Neck: supple Respiratory: decreased breath sounds, rhonchi, other ( Improved) Cardiac/Chest: irregularly irregular, No JVD Abdomen: non-tender, soft Skin: warm/dry Extremities: No calf tenderness Neuro/Psych: alert ICD10 Worksheet Patient Problems: Problems Problem Status Diagnosed Chronic Disease Mgmt/Transitional Care Acute Acute exacerbation of congestive heart failure Acute Atrial fibrillation with RVR Acute Elevated troponin Acute Review of Systems - Review of Systems Constitutional: denies: chills, fever Respiratory: shortness of breath Cardiac: no symptoms reported Gastrointestinal/Abdominal: no symptoms reported Genitourinary: no symptoms
[2016-03-28] MEDS ORDERED: MAGNESIUM HYDROXIDE 30 ML UDCUP PO PRN (13:37)
[2016-03-28] MEDS ORDERED: predniSONE 20 MG TAB PO ONE (13:49)
--- NOTE | 2016-03-28 13:59 | HOSPPROG ---
Hospitalist Progress Note Assessment/Plan: 89 yo M w AF, s/p TAVR AF: intermittently rapid posibly 2/2 underlying pulm process improved today continue current care s/p TAVR: looks good on echo cough: productive cough w clear cxr (interp by me) add mucinex given copd, add doxy, increase steroids continues to improve will have RT see for pulm toilet proph: lmwh dispo: inpt Subjective: case d/w dr carnes. tele: AF, rate mostly less than 100, which is goal Objective: Vital Signs Temp Pulse Resp BP Pulse Ox 36.3 C 96 18 122/75 H 93 03/28/16 07:13 03/28/16 11:47 03/28/16 13:40 03/28/16 11:47 03/28/16 13:40 Laboratory Results 03/28/16 04:24 03/28/16 04:24 03/27/16 03/28/16 03/29/16 05:59 05:59 05:59 Intake Total 1530 1020 710 Output Total 2019 1944 300 Balance -490 -925 410 PT 15.8 SEC (12.0-15.0) H 03/26/16 05:05 INR 1.26 (0.83-1.16) H 03/26/16 05:05 - Physical Exam Constitutional: no apparent distress, appears nourished Eyes: PERRL, anicteric sclera Ears, Nose, Mouth, Throat: moist mucous membranes, hearing normal Cardiovascular: no murmur, rub, or gallop, irregularly irregular Respiratory: no respiratory distress, no rales or rhonchi Gastrointestinal: normoactive bowel sounds, soft, non-tender abdomen Genitourinary: no bladder fullness, No rodriguez in urethra Skin: warm, normal color Musculoskeletal: full muscle strength, no muscle tenderness Neurologic: AAOx3 ICD10 Worksheet Patient Problems: Problems Problem Status Diagnosed Chronic Disease Mgmt/Transitional Care Acute Acute exacerbation of congestive heart failure Acute Atrial fibrillation with RVR Acute Elevated troponin Acute
[2016-03-28] MEDS: guaiFENesin 600 MG TAB.ER PO SCH ×2 (14:32→19:50)
[2016-03-29] MEDS: ALBUTEROL 3 ML DEYVIAL IH PRN ×3 (00:11→09:54)
[2016-03-29] MEDS: ALBUTEROL 60 PUFFS/8 GM MDI IH SCH ×6 (00:12→21:45)
[2016-03-29] MEDS: DILTIAZEM 30 MG TAB PO SCH ×2 (00:28→06:28)
[2016-03-29 06:21] LABS: ANION GAP 12 mEq/L (8-16); CALCIUM 8.6 mg/dL (8.5-10.4); CARBON DIOXIDE 28 mEq/l (22-31); CHLORIDE 99 mEq/L (97-110); CREATININE 0.7 mg/dL (0.7-1.3); GLOMERULAR FILTRATION RATE > 60; GLUCOSE 135 mg/dL (70-100); POTASSIUM 4.3 mEq/L (3.5-5.2); SODIUM 139 mEq/L (134-144)
[2016-03-29] MEDS: METOPROLOL TARTRATE 50 MG TAB PO SCH ×2 (09:28→20:22)
[2016-03-29] MEDS: ALLOPURINOL 300 MG TAB PO SCH (09:29)
[2016-03-29] MEDS: POTASSIUM CL 10 MEQ TAB PO SCH (09:29)
[2016-03-29] MEDS: guaiFENesin 600 MG TAB.ER PO SCH ×2 (09:29→20:22)
[2016-03-29] MEDS: FUROSEMIDE 40 MG TAB PO SCH (09:29)
[2016-03-29] MEDS: TERAZOSIN HCL 5 MG CAP PO SCH (09:29)
[2016-03-29] MEDS: DOCUSATE SODIUM 100 MG CAP PO SCH ×2 (09:29→20:22)
[2016-03-29] MEDS: predniSONE 10 MG TAB PO SCH (09:29)
[2016-03-29] MEDS: DOXYCYCLINE HYCLATE 100 MG CAP/TAB PO SCH ×2 (09:29→20:22)
[2016-03-29] MEDS: TIOTROPIUM INHALER 18 MCG/DOSE 5 DOSE/MDI IH SCH (09:55)
--- NOTE | 2016-03-29 10:41 | HOSPPROG ---
Hospitalist Progress Note Assessment/Plan: 89 yo M w AF, s/p TAVR AF: intermittently rapid posibly 2/2 underlying pulm process improved today continue current care on bb and dilt- change dilt to long acting s/p TAVR: looks good on echo cough: productive cough w clear cxr (interp by me) add mucinex improving daily but still w cough, non productive on mucinex check cxr today proph: lmwh dispo: inpt per pt and ot, borderline for dc home Subjective: still coughing. tele: AF at 100-110 (interp by me). case discussed w dr carnes Objective: Vital Signs Temp Pulse Resp BP Pulse Ox 36.4 C 111 H 16 104/73 95 03/29/16 07:37 03/29/16 07:37 03/29/16 07:37 03/29/16 07:37 03/29/16 07:37 Laboratory Results 03/28/16 04:24 03/29/16 04:48 03/28/16 03/29/16 03/30/16 05:59 05:59 05:59 Intake Total 1020 1810 360 Output Total 1945 2125 300 Balance -925 -315 60 PT 15.8 SEC (12.0-15.0) H 03/26/16 05:05 INR 1.26 (0.83-1.16) H 03/26/16 05:05 - Physical Exam Constitutional: no apparent distress, appears nourished Eyes: PERRL, anicteric sclera Ears, Nose, Mouth, Throat: moist mucous membranes, hearing normal Cardiovascular: irregularly irregular, No systolic murmur Respiratory: other (less rhonchorous, good air movement, no wheeze. improved) Gastrointestinal: normoactive bowel sounds, soft, non-tender abdomen Genitourinary: No rodriguez in urethra Skin: warm, normal color Musculoskeletal: full muscle strength, no muscle tenderness Neurologic: AAOx3 ICD10 Worksheet Patient Problems: Problems Problem Status Diagnosed Chronic Disease Mgmt/Transitional Care Acute Acute exacerbation of congestive heart failure Acute Atrial fibrillation with RVR Acute Elevated troponin Acute
[2016-03-29] MEDS: DILTIAZEM CD 120 MG CAP PO SCH (11:15)
--- NOTE | 2016-03-29 11:49 | SOAPPROG ---
SOAP Progress Note Assessment/Plan: Assessment: 1. Respiratory failure secondary to COPD. 2. status post transcutaneous aortic valve replacement. 3. Coronary artery disease. 4. History of systolic dysfunction with normalization of ejection fraction post valve replacement. 5. Chronic atrial fibrillation. 6. Anemia. Impression: Slow and steady improvement. Difficult morning with continued respiratory difficulties. Heart rate response appropriate for degree of distress. Normally functioning aortic valve by ECHO. Normalized LV systolic function. Continue aggressive medical therapy with clinical follow-up . Will add low-dose Digoxin to enhance rate control. considerations for low-dose diltiazem. Will avoid increasing beta-blaine due to respiratory difficulty. 03/27/16 16:02 Impression: Continued improvement with quiet night. Biggest complaint relates to shortness of breath. He has had no palpitations or syncope. Stable vital signs with improved heart rate. Plan: Continue current medical therapy with aggressive pulmonary toilet. Rehabilitation. 03/28/16 10:17 impression: Slow and steady improvement. Cardiovascular status stable. No new recommendations 03/29/16 11:46 Subjective: feeling a little bit better. Still with shortness of breath and weakness. No angina, Syncope, near syncope Objective: Vital Signs Temp Pulse Resp BP Pulse Ox 36.3 C 112 H 18 119/72 95 03/29/16 10:56 03/29/16 10:56 03/29/16 10:56 03/29/16 10:56 03/29/16 10:56 Laboratory Results 03/28/16 04:24 03/29/16 04:48 03/28/16 03/29/16 03/30/16 05:59 05:59 05:59 Intake Total 1020 1810 710 Output Total 3977 9427 750 Balance -925 -315 -40 PT 15.8 SEC (12.0-15.0) H 03/26/16 05:05 INR 1.26 (0.83-1.16) H 03/26/16 05:05 Medications Generic Name Dose Route Start Last Admin Trade Name Freq PRN Reason Stop Dose Admin Diltiazem HCl 120 mg 03/29/16 11:00 03/29/16 11:15 Cardizem Er Q24hr PO 09/25/16 10:59 120 mg DAILY [facility] Furosemide 40 mg 03/27/16 09:00 03/29/16 09:29 Lasix PO 09/23/16 08:59 40 mg DAILY [facility] Metoprolol Tartrate 50 mg 03/26/16 10:30 03/29/16 09:28 Lopressor PO 09/22/16 10:29 50 mg BID [facility] Physical Exam - Physical Exam General Appearance: alert Cardiac/Chest: systolic murmur, irregularly irregular, No gallop Skin: warm/dry Neuro/Psych: no motor/sensory deficits, alert, normal mood/affect, oriented x 3 ICD10 Worksheet Patient Problems: Problems Problem Status Diagnosed Chronic Disease Mgmt/Transitional Care Acute Acute exacerbation of congestive heart failure Acute Atrial fibrillation with RVR Acute Elevated troponin Acute Review of Systems - Review of Systems Constitutional: denies: chills, fever Respiratory: cough, shortness of breath Cardiac: denies: chest pain, irregular heart rate, lightheadedness, palpitations , syncope Gastrointestinal/Abdominal: no symptoms reported Genitourinary: no symptoms Past Medical History - Personal History Current Tetanus/Diphtheria Vaccine: Yes - Medical/Surgical History Hx Asthma: No Hx Chronic Respiratory Disease: Yes Hx Cardiac Disease: Yes Hx Diabetes: No Hx Renal Disease: No Hx Alcoholism: No Hx Cirrhosis: No Hx HIV/AIDS: No Hx Splenectomy or Spleen Trauma: No Other PMH: afib heart murmur/copd/cardiac stents, rt hip sx, , left ear deafness ,aortic valve repair/pacemaker - Social History Smoking Status: Former smoker
--- NOTE | 2016-03-29 14:59 | DX ---
PA and lateral chest. Clinical History: Cough and bronchitis Comparison Study: March 25, 2016.. Findings: Pulmonary vascular prominence is identified in the lung bases bilaterally, without focal in filtrate or pleural effusion. Cardiac silhouette is mildly prominent post left subclavian pacemaker placement and percutaneous pros thetic aortic valve placement.. Prior bilateral shoulder arthroplasties. Focal moderate kyphosis at the thoracolumbar junction.. Impression: Findings compatible with chronic congestive heart failure. Prior cardiac interventions. N o acute abnormality .
[2016-03-30] MEDS: ALBUTEROL 60 PUFFS/8 GM MDI IH SCH ×3 (02:32→11:00)
[2016-03-30] MEDS: POTASSIUM CL 10 MEQ TAB PO SCH (08:46)
[2016-03-30] MEDS: FUROSEMIDE 40 MG TAB PO SCH (08:46)
[2016-03-30] MEDS: TERAZOSIN HCL 5 MG CAP PO SCH (08:46)
[2016-03-30] MEDS: predniSONE 10 MG TAB PO SCH (08:46)
[2016-03-30] MEDS: METOPROLOL TARTRATE 50 MG TAB PO SCH ×2 (08:46→20:22)
[2016-03-30] MEDS: DILTIAZEM CD 120 MG CAP PO SCH (08:47)
[2016-03-30] MEDS: guaiFENesin 600 MG TAB.ER PO SCH ×2 (08:47→20:22)
[2016-03-30] MEDS: DOCUSATE SODIUM 100 MG CAP PO SCH ×2 (08:47→20:22)
[2016-03-30] MEDS: ALLOPURINOL 300 MG TAB PO SCH (08:47)
[2016-03-30] MEDS: DOXYCYCLINE HYCLATE 100 MG CAP/TAB PO SCH ×2 (08:47→20:22)
[2016-03-30] MEDS: TIOTROPIUM INHALER 18 MCG/DOSE 5 DOSE/MDI IH SCH ×2 (08:48→10:58)
[2016-03-30] MEDS ORDERED: predniSONE 20 MG TAB PO ONE (11:47)
[2016-03-30] MEDS: IPRATROPIUM BROMIDE 0.5 MG/2.5 ML DEYVIAL IH SCH ×3 (12:11→21:45)
[2016-03-30] MEDS: LEVALBUTEROL 0.63 MG/3 ML DEYVIAL IH SCH ×3 (12:11→21:48)
--- NOTE | 2016-03-30 17:27 | SOAPPROG ---
SOAP Progress Note Assessment/Plan: Assessment: 1. Respiratory failure secondary to COPD. 2. status post transcutaneous aortic valve replacement. 3. Coronary artery disease. 4. History of systolic dysfunction with normalization of ejection fraction post valve replacement. 5. Chronic atrial fibrillation. 6. Anemia. Impression: Slow and steady improvement. Difficult morning with continued respiratory difficulties. Heart rate response appropriate for degree of distress. Normally functioning aortic valve by ECHO. Normalized LV systolic function. Continue aggressive medical therapy with clinical follow-up . Will add low-dose Digoxin to enhance rate control. considerations for low-dose diltiazem. Will avoid increasing beta-blaine due to respiratory difficulty. 03/27/16 16:02 Impression: Continued improvement with quiet night. Biggest complaint relates to shortness of breath. He has had no palpitations or syncope. Stable vital signs with improved heart rate. Plan: Continue current medical therapy with aggressive pulmonary toilet. Rehabilitation. 03/28/16 10:17 impression: Slow and steady improvement. Cardiovascular status stable. No new recommendations 03/29/16 11:46 impression: Patient is relatively hypotensive today. He has had dizziness with activity. My sense is that this represents a volume deplete status in the setting of diuresis with underlying respiratory failure.Heart rate response appears to be appropriate to level of respiratory distress and hypotension. Resume digoxin for enhanced rate control. Recommendations are to discontinue his current dose of Lasix. Encourage p.o. fluids. Agree with aggressive pulmonary toilet. 03/30/16 17:24 Subjective: I am dizzy when I stand up. Continued shortness of breath. No chest pain. No peripheral edema. Objective: Medications Generic Name Dose Route Start Last Admin Trade Name Queq PRN Reason Stop Dose Admin Metoprolol Tartrate 50 mg 03/26/16 10:30 03/30/16 08:46 Lopressor PO 09/22/16 10:29 50 mg BID STACEY Diltiazem HCl 120 mg 03/29/16 11:00 03/30/16 08:47 Cardizem Er Q24hr PO 09/25/16 10:59 120 mg DAILY STACEY Furosemide 40 mg 03/27/16 09:00 03/30/16 08:46 Lasix PO 09/23/16 08:59 40 mg DAILY STACEY Terazosin HCl 10 mg 03/26/16 10:30 03/30/16 08:46 Hytrin PO 09/22/16 10:29 10 mg DAILY STACEY Vital Signs Temp Pulse Resp BP Pulse Ox 36.5 C 112 H 18 97/61 L 95 03/30/16 15:07 03/30/16 16:15 03/30/16 16:15 03/30/16 15:07 03/30/16 16:15 Laboratory Results 03/28/16 04:24 03/29/16 04:48 03/29/16 03/30/16 03/31/16 05:59 05:59 05:59 Intake Total 1810 1640 360 Output Total 2125 2800 1550 Balance -315 -1160 -1190 PT 15.8 SEC (12.0-15.0) H 03/26/16 05:05 INR 1.26 (0.83-1.16) H 03/26/16 05:05 Laboratory Tests 03/26/16 03/28/16 03/29/16 05:05 04:24 04:48 Hgb 11.1 L 10.8 L Creatinine 0.7 Physical Exam - Physical Exam General Appearance: alert, no apparent distress Neck: full range of motion, supple Respiratory: decreased breath sounds, rhonchi, wheezing Cardiac/Chest: irregularly irregular, No edema, No JVD Abdomen: normal bowel sounds, non-tender, soft ICD10 Worksheet Patient Problems: Problems Problem Status Diagnosed Chronic Disease Mgmt/Transitional Care Acute Acute exacerbation of congestive heart failure Acute Atrial fibrillation with RVR Acute Elevated troponin Acute Review of Systems - Review of Systems Constitutional: weakness. denies: see HPI, chills, fever EENTM: no symptoms reported Respiratory: shortness of breath Cardiac: lightheadedness. denies: chest pain Gastrointestinal/Abdominal: no symptoms reported Musculoskelatal: no symptoms
--- NOTE | 2016-03-30 22:38 | HOSPPROG ---
Hospitalist Progress Note Assessment/Plan: Assessment/Plan: 89 yo M p/w persistent atrial fibrillation in setting of acute COPD exacerbation , s/p TAVR, acute on chronic diastolic CHF exacerbation # Persistent Atrial Fibrillation: intermittently rapid, likely exacerbated by acute pulmonary process, attempt to rate control w/ bblocker/ccb and possibly chemical rhythm control w/ dig - d/w Dr. Wood, consult appreciated, initiate digoxin - cont dual marj blocking, has PPM # Acute on chronic diastolic CHF. Improved EF on echo, has concentric LVH w/ , interstitial lung markings/vascular congestion on CXR (personally interpreted ) + pulm symptoms - s/p diuresis, cont on oral agents now - monitor Cr/UOP - attempt better Afib control # COPD exacerbation. Acute, evidenced by diffuse bronchial breath sounds and exp wheezes + worsening of pulm symptoms today - uptitrate prednisone to 60mg daily - place on scheduled xopenex/atrovent - cont on doxy # s/p TAVR. Functioning on Echo Diet. Cardiac PPx. High risk, on lovenox Code. DNR Dispo. ADD uncertain, pending stabilization of COPD Exacerbation Subjective: patient and daughter requiring counseling about nature of Afib and connection w/ underlying lung disease Objective: Vital Signs Temp Pulse Resp BP Pulse Ox 36.8 C 110 H 20 106/67 94 03/30/16 19:50 03/30/16 19:50 03/30/16 19:50 03/30/16 19:50 03/30/16 19:50 Laboratory Results 03/28/16 04:24 03/29/16 04:48 03/29/16 03/30/16 03/31/16 05:59 05:59 05:59 Intake Total 1810 1640 760 Output Total 2125 2800 1870 Balance -315 -1160 -1110 PT 15.8 SEC (12.0-15.0) H 03/26/16 05:05 INR 1.26 (0.83-1.16) H 03/26/16 05:05 - Physical Exam Constitutional: no apparent distress, chronically ill appearing, uncomfortable Cardiovascular: irregularly irregular, tachycardia, edema (trace bilate LE), No systolic murmur Respiratory: reduced air movement (on exp bilat), expiratory wheeze, bronchial breath sounds, No inspiratory crackles Neurologic: AAOx3 Psychiatric: interacting appropriately, not anxious, not encephalopathic, thought process linear ICD10 Worksheet Patient Problems: Problems Problem Status Diagnosed Chronic Disease Mgmt/Transitional Care Acute Acute exacerbation of congestive heart failure Acute Atrial fibrillation with RVR Acute Elevated troponin Acute
[2016-03-31 05:28] LABS: ABSOLUTE IMMATURE GRANULOCYTES 0.07 10^3/uL (0.00-0.10); ADD DIFF? NO; ADD MORPH? NO; ADD SCAN? NO; ATYPICAL LYMPHOCYTE FLAG 10 (0-99); FRAGMENT RBC FLAG 0 (0-99); HEMATOCRIT 32.4 % (40.0-51.0); HEMOGLOBIN 11.2 g/dL (13.7-17.5); LEFT SHIFT FLG 30 (0-99); LIPEMIA HEMOLYSIS FLAG 90 (0-99); MEAN CELL HEMOGLOBIN 31.6 pg (27.9-34.1); MEAN CELL HEMOGLOBIN CONCENTR. 34.6 g/dL (32.4-36.7); MEAN CELL VOLUME 91.5 fL (81.5-99.8); MEAN PLATELET VOLUME 11.5 fL (8.7-11.7); PLATELET CLUMPS FLAG 0 (0-99); PLATELET COUNT 80 10^3/uL (150-400); RED BLOOD CELL COUNT 3.54 10^6/uL (4.40-6.38); RED CELL DISTRIBUTION WIDTH 16.2 % (11.5-15.2)
[2016-03-31 05:36] LABS: ANION GAP 12 mEq/L (8-16); CALCIUM 8.9 mg/dL (8.5-10.4); CARBON DIOXIDE 28 mEq/l (22-31); CHLORIDE 98 mEq/L (97-110); CREATININE 0.7 mg/dL (0.7-1.3); GLOMERULAR FILTRATION RATE > 60; GLUCOSE 139 mg/dL (70-100); POTASSIUM 4.4 mEq/L (3.5-5.2); SODIUM 138 mEq/L (134-144)
[2016-03-31] MEDS: IPRATROPIUM BROMIDE 0.5 MG/2.5 ML DEYVIAL IH SCH ×4 (05:44→21:21)
[2016-03-31] MEDS: LEVALBUTEROL 0.63 MG/3 ML DEYVIAL IH SCH ×4 (05:44→21:21)
[2016-03-31] MEDS ORDERED: FUROSEMIDE 20 MG TAB PO SCH (09:00)
--- NOTE | 2016-03-31 09:16 | SOAPPROG ---
SOAP Progress Note Assessment/Plan: Assessment: SOAP Progress Note Assessment/Plan: Assessment: 1. Respiratory failure secondary to COPD. 2. status post transcutaneous aortic valve replacement. 3. Coronary artery disease. 4. History of systolic dysfunction with normalization of ejection fraction post valve replacement. 5. Chronic atrial fibrillation. 6. Anemia. Impression: Slow and steady improvement. pt seems fairly well compensated on current cardiac meds..no changes today from my standpoint Plan:1. continue current cardiac meds 03/31/16 09:11 Subjective: pt doing ok today....seems to be doing better from a cv standpoint... Objective: Vital Signs Temp Pulse Resp BP Pulse Ox 36.5 C 112 H 16 97/63 L 92 03/31/16 07:48 03/31/16 07:48 03/31/16 07:48 03/31/16 07:48 03/31/16 07:48 Laboratory Results 03/31/16 04:32 03/31/16 04:32 03/30/16 03/31/16 04/01/16 05:59 05:59 05:59 Intake Total 1640 1160 360 Output Total 2800 4495 Balance -1160 -3335 360 PT 15.8 SEC (12.0-15.0) H 03/26/16 05:05 INR 1.26 (0.83-1.16) H 03/26/16 05:05 Physical Exam - Physical Exam Respiratory: lungs clear Cardiac/Chest: regular rate, rhythm, No JVD ICD10 Worksheet Patient Problems: Problems Problem Status Diagnosed Chronic Disease Mgmt/Transitional Care Acute Acute exacerbation of congestive heart failure Acute Atrial fibrillation with RVR Acute Elevated troponin Acute
[2016-03-31] MEDS: DOXYCYCLINE HYCLATE 100 MG CAP/TAB PO SCH ×2 (09:42→21:51)
[2016-03-31] MEDS: ALLOPURINOL 300 MG TAB PO SCH (09:42)
[2016-03-31] MEDS: DILTIAZEM CD 120 MG CAP PO SCH (09:43)
[2016-03-31] MEDS: guaiFENesin 600 MG TAB.ER PO SCH ×2 (09:43→21:50)
[2016-03-31] MEDS: predniSONE 20 MG TAB PO SCH (09:43)
[2016-03-31] MEDS: POTASSIUM CL 10 MEQ TAB PO SCH (09:43)
[2016-03-31] MEDS: TERAZOSIN HCL 5 MG CAP PO SCH (09:44)
[2016-03-31] MEDS: METOPROLOL TARTRATE 50 MG TAB PO SCH ×2 (09:44→21:51)
[2016-03-31] MEDS: DOCUSATE SODIUM 100 MG CAP PO SCH ×2 (09:45→21:51)
[2016-03-31] MEDS ORDERED: DIGOXIN 50 MCG/ML UDSYR PO SCH (10:00)
[2016-03-31] MEDS ORDERED: DIGOXIN 250 MCG TAB PO SCH (10:00)
[2016-03-31] MEDS: DIGOXIN 250 MCG TAB PO SCH (10:21)
[2016-03-31] MEDS: FUROSEMIDE 40 MG TAB PO SCH (12:49)
[2016-03-31] MEDS ORDERED: NS 500 ML IV SCH (14:15)
--- NOTE | 2016-03-31 16:24 | HOSPPROG ---
Hospitalist Progress Note Assessment/Plan: Assessment/Plan: 89 yo M p/w persistent atrial fibrillation in setting of acute COPD exacerbation , s/p TAVR, acute on chronic diastolic CHF exacerbation # Persistent Atrial Fibrillation: intermittently rapid, likely exacerbated by acute pulmonary process, attempt to rate control w/ bblocker/ccb and chemical rhythm control w/ dig - initiated digoxin 250mcg today, currently in a sinus tach on tele (personally interpreted) - cont dual marj blocking, has PPM # Hypotension. Acute, likely 2/2 overdiuresis and low PO intake, symptomatic and in sinus tach - give 500cc NS bolus now given that he appears hypovolemic in sinus tach w/ SBP 88 and symptomatic # Acute on chronic diastolic CHF. Improved EF on echo, has concentric LVH w/ , interstitial lung markings/vascular congestion on CXR (personally interpreted ) + pulm symptoms - s/p diuresis, hold lasix today given that he appears euvolemic to hypovolemic - monitor Cr/UOP # COPD exacerbation. Acute, evidenced by diffuse bronchial breath sounds and exp wheezes + worsening of pulm symptoms, improving today - uptitrated prednisone to 60mg daily, D2/5 - placed on scheduled xopenex/atrovent - cont on doxy x 5 days # s/p TAVR. Functioning on Echo Diet. Cardiac PPx. High risk, on lovenox Code. DNR Dispo. ADD uncertain, pending stabilization of hypotension Subjective: Patient reports dizziness with ambulation to the restroom, improved with sitting Objective: Vital Signs Temp Pulse Resp BP Pulse Ox 37.1 C 112 H 20 102/68 93 03/31/16 16:00 03/31/16 16:00 03/31/16 16:00 03/31/16 16:00 03/31/16 16:00 Laboratory Results 03/31/16 04:32 03/31/16 04:32 03/30/16 03/31/16 04/01/16 05:59 05:59 05:59 Intake Total 1640 1160 360 Output Total 2800 4495 200 Balance -1160 -3335 160 PT 15.8 SEC (12.0-15.0) H 03/26/16 05:05 INR 1.26 (0.83-1.16) H 03/26/16 05:05 - Physical Exam Constitutional: no apparent distress, not in pain, chronically ill appearing, No uncomfortable Cardiovascular: systolic murmur (2/6 systolic at the right sternal border), tachycardia (Regular rhythm), No irregularly irregular, No edema Respiratory: reduced air movement (Slightly shortened expiratory phase bilaterally), No expiratory wheeze, No inspiratory crackles, No bronchial breath sounds, No respiratory distress Gastrointestinal: normoactive bowel sounds, soft, non-tender abdomen, no palpable masses Neurologic: AAOx3, No facial droop Psychiatric: interacting appropriately, not anxious, not encephalopathic, thought process linear ICD10 Worksheet Patient Problems: Problems Problem Status Diagnosed Chronic Disease Mgmt/Transitional Care Acute Acute exacerbation of congestive heart failure Acute Atrial fibrillation with RVR Acute Elevated troponin Acute
[2016-04-01] MEDS: IPRATROPIUM BROMIDE 0.5 MG/2.5 ML DEYVIAL IH SCH ×3 (04:48→18:28)
[2016-04-01] MEDS: LEVALBUTEROL 0.63 MG/3 ML DEYVIAL IH SCH ×3 (04:48→18:28)
[2016-04-01 04:58] LABS: % IMMATURE GRANULYOCYTES 1.3 % (0.0-1.1); ABSOLUTE IMMATURE GRANULOCYTES 0.09 10^3/uL (0.00-0.10); ADD DIFF? NO; ADD MORPH? NO; ADD SCAN? NO; ATYPICAL LYMPHOCYTE FLAG 10 (0-99); FRAGMENT RBC FLAG 0 (0-99); HEMATOCRIT 30.5 % (40.0-51.0); HEMOGLOBIN 10.8 g/dL (13.7-17.5); LEFT SHIFT FLG 30 (0-99); LIPEMIA HEMOLYSIS FLAG 90 (0-99); MEAN CELL HEMOGLOBIN 32.5 pg (27.9-34.1); MEAN CELL HEMOGLOBIN CONCENTR. 35.4 g/dL (32.4-36.7); MEAN CELL VOLUME 91.9 fL (81.5-99.8); MEAN PLATELET VOLUME 11.6 fL (8.7-11.7); PLATELET CLUMPS FLAG 0 (0-99); PLATELET COUNT 70 10^3/uL (150-400); RED BLOOD CELL COUNT 3.32 10^6/uL (4.40-6.38); RED CELL DISTRIBUTION WIDTH 16.1 % (11.5-15.2)
[2016-04-01 05:14] LABS: ANION GAP 9 mEq/L (8-16); CALCIUM 8.7 mg/dL (8.5-10.4); CARBON DIOXIDE 29 mEq/l (22-31); CHLORIDE 99 mEq/L (97-110); CREATININE 0.7 mg/dL (0.7-1.3); GLOMERULAR FILTRATION RATE > 60; GLUCOSE 127 mg/dL (70-100); POTASSIUM 4.2 mEq/L (3.5-5.2); SODIUM 137 mEq/L (134-144)
[2016-04-01] MEDS: DOCUSATE SODIUM 100 MG CAP PO SCH ×2 (07:59→21:15)
[2016-04-01] MEDS: guaiFENesin 600 MG TAB.ER PO SCH ×3 (07:59→21:15)
[2016-04-01] MEDS: predniSONE 20 MG TAB PO SCH (07:59)
[2016-04-01] MEDS: METOPROLOL TARTRATE 50 MG TAB PO SCH ×2 (08:00→21:15)
[2016-04-01] MEDS: ALLOPURINOL 300 MG TAB PO SCH (08:00)
[2016-04-01] MEDS: DOXYCYCLINE HYCLATE 100 MG CAP/TAB PO SCH ×2 (08:00→21:15)
[2016-04-01] MEDS: DILTIAZEM CD 120 MG CAP PO SCH (08:00)
[2016-04-01] MEDS: TERAZOSIN HCL 5 MG CAP PO SCH (08:00)
--- NOTE | 2016-04-01 08:59 | SOAPPROG ---
SOAP Progress Note Assessment/Plan: Assessment: SOAP Progress Note Assessment/Plan: Assessment: 1. Respiratory failure secondary to COPD.his prob diastolic chf seems to have resolved on meds..he maybe on ths "dry" side looking at his recent" io"s 2. status post transcutaneous aortic valve replacement... 3. Coronary artery disease. 4. History of systolic dysfunction with normalization of ejection fraction post valve replacement. 5. Chronic atrial fibrillation. 6. Anemia. Impression: Slow and steady improvement. pt seems fairly well compensated on current cardiac meds..no changes today from my standpoint Plan:1. continue current cardiac meds 03/31/16 09:11 04/01/16 08:57 Subjective: pt feeling a little better today..reviewed labs from yesterday Objective: Vital Signs Temp Pulse Resp BP Pulse Ox 36.3 C 112 H 14 101/69 94 04/01/16 07:30 04/01/16 07:30 04/01/16 07:30 04/01/16 07:30 04/01/16 07:30 Laboratory Results 04/01/16 04:16 04/01/16 04:16 03/31/16 04/01/16 04/02/16 05:59 05:59 05:59 Intake Total 1160 1300 Output Total 4495 1900 Balance -3335 -600 PT 15.8 SEC (12.0-15.0) H 03/26/16 05:05 INR 1.26 (0.83-1.16) H 03/26/16 05:05 Physical Exam - Physical Exam Respiratory: wheezing Cardiac/Chest: regular rate, rhythm ICD10 Worksheet Patient Problems: Problems Problem Status Diagnosed Chronic Disease Mgmt/Transitional Care Acute Acute exacerbation of congestive heart failure Acute Atrial fibrillation with RVR Acute Elevated troponin Acute
[2016-04-01] MEDS: DIGOXIN 250 MCG TAB PO SCH (09:31)
[2016-04-01] MEDS ORDERED: IOPAMIDOL (ISOVUE 370) 100 ML BTL IV ONE (11:12)
--- NOTE | 2016-04-01 12:18 | CT ---
CT of the Chest With Contrast (CT Pulmonary Angiogram) 04/01/2016 Clinical History: Evaluate for PE versus pulmonary disease versus infiltrate. Technique: Thinly collimated multidetector helical CT imaging was performed through the chest while 90 mL of Isovue 370 were injected intravenously without complication. The images were then transferr ed to an independent workstation where multiplanar and three-dimensional reconstructions were perform ed by the interpreting physician and reviewed at multiple windows. Dose reduction techniques were uti lized. Findings: Lung Windows: No infiltrate, effusion, or mass identified. Mild dependent atelectasis within the base s. Mediastinal Windows: No significant mediastinal or axillary lymphadenopathy identified. No significan t pleural disease identified. Stent is present within the descending thoracic aorta. Pacemaker is pre sent. Images of the upper abdomen demonstrate multiple gallstones within the gallbladder. A cyst is present in the upper pole of the right kidney. CT Pulmonary Angiogram: The visualized pulmonary arterial segments appear normal without filling defe ct to suggest acute pulmonary thromboembolic disease. Impression: 1. Negative CT examination of the chest for acute pulmonary thromboembolic disease. 2. No acute infiltrate or pleural effusion. Dependent atelectasis. 3. Cholelithiasis. Right renal cyst.
--- NOTE | 2016-04-01 15:33 | HOSPPROG ---
Hospitalist Progress Note Assessment/Plan: INTERVAL SUMMARY & DAILY PROGRESS NOTE DATE OF ADMISSION: 03/25/2016 INTERVAL DIAGNOSES 1. Acute COPD exacerbation 2. Acute on chronic diastolic congestive heart failure exacerbation 3. Persistent atrial fibrillation 4. Acute hypotension 5. Atelectasis CONSULTATIONS Cardiology Pulmonary PROCEDURES / IMAGING CT angiograms demonstrating no evidence of pulmonary embolism, bibasilar atelectasis, no focal infiltrate CHIEF COMPLAINT Acute shortness of breath SUBJECTIVE Patient reports that his shortness of breath persists, his legs are much less edematous than on presentation HOSPITAL COURSE BY PROBLEM The patient presented with a combination of CHF and COPD and he was diuresed 7 kg during this hospitalization. Despite achieving a euvolemic to slightly hypovolemic state, the patient's COPD exacerbation has persisted. He has been treated with steroids and scheduled Xopenex/Atrovent as well as doxycycline. It is anticipated that he is just experiencing a slow recovery and will most likely require custodial facility once he is medically stable. Assessment/Plan: 89 yo M p/w persistent atrial fibrillation in setting of acute COPD exacerbation , s/p TAVR, acute on chronic diastolic CHF exacerbation # Persistent Atrial Fibrillation: intermittently rapid, likely exacerbated by acute pulmonary process, attempt to rate control w/ bblocker/ccb and chemical rhythm control w/ dig - initiated digoxin 250mcg, currently in a sinus tach on tele (personally interpreted) - cont dual marj blocking, has PPM - d/w Dr. Olea, treating the underlying COPD is what is necessary now that he has chemically converted out of Afib - CHADS-Vasc w/ indication for anti-coagulation, patient not anticoagulated as outpt, rec further d/w patient and cards - will place on ASA 81 in interim # Hypotension. Acute, likely 2/2 overdiuresis and low PO intake, symptomatic and in sinus tach - given 500cc bolus on 03/31, hold on further fluids today # Acute on chronic diastolic CHF. Improved EF on echo, has concentric LVH w/ , interstitial lung markings/vascular congestion on CXR (personally interpreted ) + pulm symptoms - s/p diuresis, continue hold on lasix today given that he appears euvolemic, if SBP remains > 100 tomorrow, then restart - monitor Cr/UOP # COPD exacerbation. Acute, evidenced by diffuse bronchial breath sounds and exp wheezes + worsening of pulm symptoms, worsening today - prednisone to 60mg daily, D3/5 - placed on scheduled xopenex/atrovent - cont on doxy x 5 days - added muncinx - CTA w/o PE - d/w Dr. Hanley, consult appreciated, recommended possible mucolytics and will assess # Atelectasis. Present on CT, start IS # s/p TAVR. Functioning on Echo Diet. Cardiac PPx. High risk, on lovenox Code. DNR Dispo. ADD uncertain, pending stabilization of COPD exacerbation Subjective: Patient reports that his breathing has worsened today, short of breath with ambulation Objective: Vital Signs Temp Pulse Resp BP Pulse Ox 36.8 C 103 H 23 H 107/70 94 04/01/16 12:00 04/01/16 12:00 04/01/16 12:00 04/01/16 12:00 04/01/16 12:00 Laboratory Results 04/01/16 04:16 04/01/16 04:16 03/31/16 04/01/16 04/02/16 05:59 05:59 05:59 Intake Total 1160 1300 880 Output Total 4495 1900 175 Balance -3335 -600 705 PT 15.8 SEC (12.0-15.0) H 03/26/16 05:05 INR 1.26 (0.83-1.16) H 03/26/16 05:05 - Time Spent With Patient Time Spent with Patient: greater than 35 minutes Time Spent with Patient: Greater than 35 minutes spent on this patients care, greater than 50% of time spent counseling, educating, and coordinating care regarding the above mentioned plan. - Physical Exam Constitutional: no apparent distress, not in pain, chronically ill appearing, No uncomfortable Cardiovascular: tachycardia (Trace), edema (Trace bilateral lower extremity), No systolic murmur, No irregularly irregular Respiratory: reduced air movement (On expiration bilaterally), expiratory wheeze , bronchial breath sounds, No inspiratory crackles Gastrointestinal: normoactive bowel sounds, soft, non-tender abdomen, no palpable masses Neurologic: AAOx3, No weakness (Motor 5/5 bilateral lower extremity), No facial droop Psychiatric: interacting appropriately, not anxious, not encephalopathic, thought process linear ICD10 Worksheet Patient Problems: Problems Problem Status Diagnosed Chronic Disease [facility]/Transitional Care Acute Acute exacerbation of congestive heart failure Acute Atrial fibrillation with RVR Acute Elevated troponin Acute
--- NOTE | 2016-04-01 22:22 | GCON ---
[f rep st] CONSULTATION PULMONARY CONSULTATION DATE OF CONSULTATION: 04/01/2016 REASON FOR CONSULTATION: Chronic bronchitis, chronic obstructive pulmonary disease. HISTORY OF PRESENT ILLNESS: The patient is a very pleasant 89-year-old gentleman who has an extensiv e cardiac history with atrial fibrillation, a recent TAVR procedure, and a recent pacemaker placement . He is followed from a cardiac standpoint by [facility]. He was admitted on 03/25/2016 secondar y to increasing congestive heart failure. He has had significant diuresis and he is now felt to be e uvolemic, if not somewhat dry. He is complaining now of cough and the feeling of chest congestion. He cannot produce any sputum, bu t notices this in his lungs with coughing. Does have a history of COPD and chronic bronchitis. He h as had intermittent exacerbations with increasing shortness of breath and increased mucus, not necess arily requiring antibiotics or associated with infection. He has been treated with a variety of inha lers, nebulized treatments, antibiotics and steroids, in the past. He does not recall if any of thes e have significantly helped. He does not use any inhalers routinely. He does not use his nebulizer at home. He was recently started on oxygen. He does not recall whether he has seen any pulmonary do ctors in the past. Currently, he is on oxygen at 2 L. He is on routine DuoNeb and p.r.n. low-dose Xopenex, as well as p rednisone at 60 mg per day. The latter was started yesterday. When he does bring up the sputum, he states that it is whitish. He has had similar symptoms like this in the past which come and go. Remarkable for cardiac issues, including coronary artery disease with stenting, aortic stenosis with TAVR, atrial fibrillation, diastolic and systolic dysfunction, systemic hypertension, COPD and chroni c bronchitis. SOCIAL HISTORY: He lives in [place] with his granddaughter. His 10 years ago. He has a son who lives in [place]. He smoked cigarettes but quit smoking at least 30 years ago. He started smoking in his teens; thus, about 30 years; probably less than a pack a day. Alcohol is negative. DRUG ALLERGIES: None known. FAMILY HISTORY: Noncontributory. REVIEW OF SYSTEMS: Negative except as mentioned above. In addition, he denies aspiration or signifi cant gastroesophageal reflux. He denies known allergies. He denies exposures. PHYSICAL EXAMINATION: GENERAL: Remarkable for a very pleasant gentleman who is sitting comfortably in a chair. VITAL SIGNS: Blood pressure is 110/77, heart rate 110 and regular, in sinus rhythm, res piratory rate is 20, saturations are 94%. He is afebrile. HEENT: Unremarkable for lymphadenopathy or thyromegaly. There is no obvious jugular venous distention. PULMONARY: The chest reveals decrea sed breath sounds bilaterally. There is some central congestion, especially with cough, and inspirat ory/expiratory wheezes/coarse airway sounds. He is not able to bring up any sputum. CARDIOVASCULAR: The heart is tachycardic. There is a systolic murmur. ABDOMEN: Overweight, soft nontender. Constantino l sounds are present. EXTREMITIES: Remarkable for 1+ edema. NEUROLOGIC: Within normal limits. DATABSE: CT scan of the chest was reviewed personally. There are no infiltrates, no effusions, no e vidence of emphysema. Angiographic studies demonstrated no evidence of pulmonary embolism. LABORATORY: White blood cell count is 7100, hematocrit 30.5, platelet 70,000. Basic metabolic panel is within normal limits. ASSESSMENT: 1. Chronic obstructive pulmonary disease/chronic bronchitis. The patient has a long history of this . He currently has [id number] congestion with some wheezing. There is no evidence of infectio n, as sputum is clear, white blood cell count is normal, and he is afebrile. He is on both anticholi nergics and bronchodilators which is appropriate. He is also on prednisone at 60 mg. Guaifenesin is also being given. As his symptoms are chronic, and wax and wane, I feel that the current therapies are appropriate and that he may improve over next several days as steroids become more effective in treating inflammation associated with his disease. Spirometry may be helpful. With the intermittent nature of his symptoms, I wonder about intermittent aspiration, which he denies, or gastroesophageal reflux, which may be present but occult. A barium swallow may be worthwhile. 2. History of cardiac disease. As outlined above, with recent transcatheter aortic valve replacemen t, diastolic dysfunction, etc. He came in with significant volume overload and has been significantl y diuresed and appears to be doing well from a cardiac standpoint. 3. Hypoxemia. The patient was recently started on oxygen at night. He will continue to need this. It is unclear if he is going to need much oxygen during the day. PLAN AND RECOMMENDATIONS: Current medications will be continued and left unchanged. Spirometry pre and post bronchodilator will be obtained tomorrow. A barium swallow/esophagram will be ordered. Further plans and recommendations will be made based on the results of the above studies and his prog ress over the next 12-24 hours. /[id number]/MODL
[2016-04-02] MEDS: LEVALBUTEROL 0.63 MG/3 ML DEYVIAL IH SCH ×5 (00:32→22:00)
[2016-04-02] MEDS: IPRATROPIUM BROMIDE 0.5 MG/2.5 ML DEYVIAL IH SCH ×5 (00:32→22:00)
[2016-04-02 05:53] LABS: % IMMATURE GRANULYOCYTES 1.1 % (0.0-1.1); ABSOLUTE IMMATURE GRANULOCYTES 0.09 10^3/uL (0.00-0.10); ADD DIFF? NO; ADD MORPH? NO; ADD SCAN? NO; ATYPICAL LYMPHOCYTE FLAG 0 (0-99); FRAGMENT RBC FLAG 0 (0-99); HEMATOCRIT 31.5 % (40.0-51.0); LEFT SHIFT FLG 20 (0-99); LIPEMIA HEMOLYSIS FLAG 90 (0-99); MEAN CELL HEMOGLOBIN 32.3 pg (27.9-34.1); MEAN CELL HEMOGLOBIN CONCENTR. 34.9 g/dL (32.4-36.7); MEAN CELL VOLUME 92.4 fL (81.5-99.8); MEAN PLATELET VOLUME 11.6 fL (8.7-11.7); PLATELET CLUMPS FLAG 0 (0-99); PLATELET COUNT 77 10^3/uL (150-400); RED BLOOD CELL COUNT 3.41 10^6/uL (4.40-6.38); RED CELL DISTRIBUTION WIDTH 16.4 % (11.5-15.2)
[2016-04-02 06:16] LABS: ANION GAP 12 mEq/L (8-16); CALCIUM 8.7 mg/dL (8.5-10.4); CARBON DIOXIDE 28 mEq/l (22-31); CHLORIDE 99 mEq/L (97-110); CREATININE 0.7 mg/dL (0.7-1.3); GLOMERULAR FILTRATION RATE > 60; GLUCOSE 109 mg/dL (70-100); POTASSIUM 4.1 mEq/L (3.5-5.2); SODIUM 139 mEq/L (134-144)
[2016-04-02] MEDS: TERAZOSIN HCL 5 MG CAP PO SCH (08:36)
[2016-04-02] MEDS: guaiFENesin 600 MG TAB.ER PO SCH ×2 (08:36→21:44)
[2016-04-02] MEDS: ALLOPURINOL 300 MG TAB PO SCH (08:36)
[2016-04-02] MEDS: METOPROLOL TARTRATE 50 MG TAB PO SCH ×2 (08:37→21:44)
[2016-04-02] MEDS: DILTIAZEM CD 120 MG CAP PO SCH (08:37)
[2016-04-02] MEDS: DOXYCYCLINE HYCLATE 100 MG CAP/TAB PO SCH ×2 (08:38→21:44)
[2016-04-02] MEDS: ASPIRIN EC 81 MG TAB PO SCH (08:38)
--- NOTE | 2016-04-02 10:02 | SOAPPROG ---
SOAP Progress Note Assessment/Plan: Assessment: SOAP Progress Note Assessment/Plan: Assessment: 1. Respiratory failure secondary to COPD.his prob diastolic chf seems to have resolved on meds..he maybe on ths "dry" side looking at his recent" io"s 2. status post transcutaneous aortic valve replacement... 3. Coronary artery disease. 4. History of systolic dysfunction with normalization of ejection fraction post valve replacement. 5. Chronic atrial fibrillation. 6. Anemia. 7. copd..recently seen by dr inman Impression: Slow and steady improvement. pt seems fairly well compensated on current cardiac meds..no changes today from my standpoint Plan:1. continue current cardiac meds 03/31/16 09:11 04/01/16 08:57 04/02/16 10:01 Subjective: no cv c/o...was seen yesterday by dr inman to help with pulmonary issues Objective: Vital Signs Temp Pulse Resp BP Pulse Ox 36.6 C 74 16 108/74 92 04/02/16 07:24 04/02/16 09:16 04/02/16 09:16 04/02/16 08:37 04/02/16 09:16 Laboratory Results 04/02/16 04:55 04/02/16 04:55 04/01/16 04/02/16 04/03/16 05:59 05:59 05:59 Intake Total 1300 1130 Output Total 1900 2875 Balance -600 -1745 PT 15.8 SEC (12.0-15.0) H 03/26/16 05:05 INR 1.26 (0.83-1.16) H 03/26/16 05:05 Physical Exam - Physical Exam Respiratory: rhonchi Cardiac/Chest: regular rate, rhythm, No edema ICD10 Worksheet Patient Problems: Problems Problem Status Diagnosed Chronic Disease Mgmt/Transitional Care Acute Acute exacerbation of congestive heart failure Acute Atrial fibrillation with RVR Acute Elevated troponin Acute
[2016-04-02] MEDS: DIGOXIN 250 MCG TAB PO SCH (11:17)
[2016-04-02] MEDS: DOCUSATE SODIUM 100 MG CAP PO SCH ×2 (11:18→21:44)
[2016-04-02] MEDS: predniSONE 20 MG TAB PO SCH (11:18)
--- NOTE | 2016-04-02 11:47 | HOSPPROG ---
Hospitalist Progress Note Assessment/Plan: DIAGNOSIS: # acute hypoxemic respiratory failure # acute COPD exacerbation, the likely chronic bronchitis # diastolic congestive heart failure, now at compensated volume status after diuresis # chronic persistent atrial fibrillation PLANS: -will check results of video swallow study to be done today -continue bronchodilators and steroid here -will discuss with pulmonology -increase activity as able SUBJECTIVE: Still fairly short of breath with limited ambulation from that Still with cough with what he feels are stuck secretions he is unable to raise OBJECTIVE Vitals reviewed: Stable without fever court monitor: Atrial fibrillation, with good rate control occasional paced complex on my review Exam: alert oriented skin warm dry color ok resps not labored lungs severe rhonchi and diffuse wheezing heart regular abd soft nondistended nontender, bowel sounds present limbs warm, no edema iv site ok Objective: Vital Signs Temp Pulse Resp BP Pulse Ox 36.2 C 94 22 H 102/64 94 04/02/16 11:05 04/02/16 11:17 04/02/16 11:05 04/02/16 11:05 04/02/16 11:05 Laboratory Results 04/02/16 04:55 04/02/16 04:55 04/01/16 04/02/16 04/03/16 06:59 06:59 06:59 Intake Total 1300 1130 Output Total 1900 2875 Balance -600 -1745 PT 15.8 SEC (12.0-15.0) H 03/26/16 05:05 INR 1.26 (0.83-1.16) H 03/26/16 05:05 ICD10 Worksheet Patient Problems: Problems Problem Status Diagnosed Chronic Disease Mgmt/Transitional Care Acute Acute exacerbation of congestive heart failure Acute Atrial fibrillation with RVR Acute Elevated troponin Acute
--- NOTE | 2016-04-02 12:19 | DX ---
Limited Single Contrast Esophagram Clinical History: 89-year-old male with pulmonary congestion. Evaluate for aspiration, gastroesophage al reflux, or other esophageal abnormalities. Technique: The patient was a fall-risk, so imaging could not be performed while the patient was stand ing. He was placed in a 45-degree recumbent position on the fluoroscopic table and thick barium was i ngested without effervescent crystals. Because of the patient's fragile condition, we were unable to place him in a prone CARLS[place] position for the standard "drinking esophagus" to optimally evaluate for the presence of gastroesophageal reflux. Note: Dr. Cody Hanley specifically requests a thoracic esophag eal motility evaluation, and at this point is not requesting a video esophagram with speech therapy a ssessment. Fluoroscopy Time: 2.0 minutes of (53.50 mGy exposure dose). Comparison Study: None. Findings: There is antegrade esophageal motility, and there was no gross aspiration observed, however , we were unable to optimally image the patient's hypopharynx and cervical and thoracic esophagus in the lateral projection. There were some intermittent tertiary esophageal contractions, consistent wit h a presbyesophagus. This resulted in some retrograde, as well as antegrade, motility. There is no hi atal hernia observed, and there is no esophageal stricture identified. Impression: Technically limited study revealing presbyesophagus and some retrograde and antegrade mot ility, but no hiatal hernia or aspiration observed.
--- NOTE | 2016-04-02 12:36 | SOAPPROG ---
SOAP Progress Note Assessment/Plan: Assessment: COPD. This is associated with a restrictive component. He has moderate to severe combined disease with likely some reversibility. Chronic bronchitis. He has a history of chronic cough and sputum production with intermittent exacerbations. He currently has significant congestion and ongoing wheezing at without definite signs or symptoms of infection. However, I can not rule out a low-grade infectious etiology. Current medications appear appropriate. I will add azithromycin after a sputum cultures obtained. Rule out occult reflux, or less likely possibe esophageal abnormalities or aspiration. Barium swallow is pending. Congestive heart failure/cardiac disease/T AVR, etc. Status post excellent diuresis Plan: Continue present cardiac therapies. Continue nebulized treatments and steroids. Check sputum culture, add azithromycin although his congestion may not be infectious. Await results of the barium swallow. I will sign out the patient to Dr. Ruiz who will follow him in the hospital from here on out. I will see him back in the office in the future post discharge. Complete pulmonary function tests will be obtained at that time. Subjective: Feels a little less congestion today. Able to cough up a small amount of sputum. Objective: Vital Signs Temp Pulse Resp BP Pulse Ox 36.2 C 94 22 H 102/64 94 04/02/16 11:05 04/02/16 11:17 04/02/16 11:05 04/02/16 11:05 04/02/16 11:05 Laboratory Results 04/02/16 04:55 04/02/16 04:55 04/01/16 04/02/16 04/03/16 05:59 05:59 05:59 Intake Total 1300 1130 Output Total 1900 2875 Balance -600 -1745 PT 15.8 SEC (12.0-15.0) H 03/26/16 05:05 INR 1.26 (0.83-1.16) H 03/26/16 05:05 Barium swallow pending. Spirometry: Moderate to severe combined obstructive and restrictive disease is present. Vital capacity is 2.6 L, 70% of predicted with an FEV1 of 1.46 L, 56% of predicted. Following bronchodilator there is minimal improvement, 6 and 5% respectively. Physical Exam - Physical Exam General Appearance: alert, no apparent distress EENT: other (Nasal cannula at 2 L) Neck: normal inspection Respiratory: decreased breath sounds, rhonchi (Central congestion present), wheezing Cardiac/Chest: systolic murmur, irregularly irregular Abdomen: normal bowel sounds, non-tender, soft Skin: normal color, warm/dry Extremities: pedal edema (Trace +) Neuro/Psych: no motor/sensory deficits, No cognition abnormalities ICD10 Worksheet Patient Problems: Problems Problem Status Diagnosed Chronic Disease Mgmt/Transitional Care Acute Acute exacerbation of congestive heart failure Acute Atrial fibrillation with RVR Acute Elevated troponin Acute
[2016-04-02] MEDS: AZITHROMYCIN 250 MG TAB PO SCH (13:09)
[2016-04-03 06:19] LABS: ANION GAP 10 mEq/L (8-16); CALCIUM 8.7 mg/dL (8.5-10.4); CARBON DIOXIDE 27 mEq/l (22-31); CHLORIDE 101 mEq/L (97-110); CREATININE 0.8 mg/dL (0.7-1.3); GLOMERULAR FILTRATION RATE > 60; GLUCOSE 129 mg/dL (70-100); POTASSIUM 4.1 mEq/L (3.5-5.2); SODIUM 138 mEq/L (134-144)
[2016-04-03 06:58] LABS: % IMMATURE GRANULYOCYTES 1.9 % (0.0-1.1); ABSOLUTE IMMATURE GRANULOCYTES 0.14 10^3/uL (0.00-0.10); ADD DIFF? NO; ADD MORPH? NO; ADD SCAN? NO; ATYPICAL LYMPHOCYTE FLAG 0 (0-99); FRAGMENT RBC FLAG 30 (0-99); HEMATOCRIT 31.5 % (40.0-51.0); HEMOGLOBIN 11.2 g/dL (13.7-17.5); LEFT SHIFT FLG 40 (0-99); LIPEMIA HEMOLYSIS FLAG 90 (0-99); MEAN CELL HEMOGLOBIN 32.6 pg (27.9-34.1); MEAN CELL HEMOGLOBIN CONCENTR. 35.6 g/dL (32.4-36.7); MEAN CELL VOLUME 91.6 fL (81.5-99.8); MEAN PLATELET VOLUME 11.2 fL (8.7-11.7); PLATELET CLUMPS FLAG 0 (0-99); PLATELET COUNT 96 10^3/uL (150-400); RED BLOOD CELL COUNT 3.44 10^6/uL (4.40-6.38); RED CELL DISTRIBUTION WIDTH 16.1 % (11.5-15.2)
[2016-04-03 07:42] VITALS: BP 94/55; RESP 17; TEMP 97.3
[2016-04-03] MEDS: LEVALBUTEROL 0.63 MG/3 ML DEYVIAL IH SCH ×2 (08:00→10:55)
[2016-04-03] MEDS: IPRATROPIUM BROMIDE 0.5 MG/2.5 ML DEYVIAL IH SCH ×2 (08:00→10:55)
[2016-04-03 08:02] LABS: DIGOXIN 0.8 ng/mL (0.8-2.0)
[2016-04-03] MEDS: DOCUSATE SODIUM 100 MG CAP PO SCH (08:08)
[2016-04-03] MEDS: guaiFENesin 600 MG TAB.ER PO SCH (08:08)
[2016-04-03] MEDS: ALLOPURINOL 300 MG TAB PO SCH (08:08)
[2016-04-03] MEDS: ASPIRIN EC 81 MG TAB PO SCH (08:08)
[2016-04-03] MEDS: DILTIAZEM CD 120 MG CAP PO SCH (08:08)
[2016-04-03] MEDS: DOXYCYCLINE HYCLATE 100 MG CAP/TAB PO SCH (08:08)
[2016-04-03] MEDS: predniSONE 20 MG TAB PO SCH (08:09)
[2016-04-03] MEDS: AZITHROMYCIN 250 MG TAB PO SCH (08:09)
[2016-04-03] MEDS: TERAZOSIN HCL 5 MG CAP PO SCH (08:09)
--- NOTE | 2016-04-03 09:05 | SOAPPROG ---
SOAP Progress Note Assessment/Plan: Assessment: SOAP Progress Note Assessment/Plan: Assessment: 1. Respiratory failure secondary to COPD.his prob diastolic chf seems to have resolved on current meds ..ok to d/c on current meds withchf f/u in [facility] ([place], [place]) 2. status post transcutaneous aortic valve replacement... 3. Coronary artery disease. 4. History of systolic dysfunction with normalization of ejection fraction post valve replacement. 5. Chronic atrial fibrillation.rate well controlled 6. Anemia. 7. copd..recently seen by dr inman Impression: Slow and steady improvement. pt seems fairly well compensated on current cardiac meds..no changes today from my standpoint Plan:1. continue current cardiac meds..ok to d/c from 03/31/16 09:11 04/01/16 08:57 04/02/16 10:01 04/03/16 09:04 Subjective: pt fee;ing better..from cv standpoint he can be d/c to snf..would make sure heis enrolled in chf f/u at [facility] ([place], [place]) Objective: Vital Signs Temp Pulse Resp BP Pulse Ox 36.3 C 63 17 94/55 L 96 04/03/16 07:38 04/03/16 07:38 04/03/16 07:38 04/03/16 07:38 04/03/16 07:38 Microbiology 04/02/16 13:03 - Final Sputum, Expectorated Laboratory Results 04/03/16 06:20 04/03/16 04:20 04/02/16 04/03/16 04/04/16 05:59 05:59 05:59 Intake Total 1130 1350 Output Total 2875 2125 Balance -1745 -775 PT 15.8 SEC (12.0-15.0) H 03/26/16 05:05 INR 1.26 (0.83-1.16) H 03/26/16 05:05 Physical Exam - Physical Exam Respiratory: lungs clear Cardiac/Chest: regular rate, rhythm, No edema, No JVD ICD10 Worksheet Patient Problems: Problems Problem Status Onset Chronic Disease Mgmt/Transitional Care Acute Acute exacerbation of congestive heart failure Acute Atrial fibrillation with RVR Acute Elevated troponin Acute
[2016-04-03] MEDS: METOPROLOL TARTRATE 50 MG TAB PO SCH (09:15)
[2016-04-03 11:00] VITALS: PULSE 80; O2SAT 92
--- NOTE | 2016-04-03 11:34 | PDIAF ---
- Diagnosis Diagnosis: A fib new, copd exacerbation, r side chf Code Status: Do Not Resuscitate - Medication Management Discharge Medications: Medications to Continue on Transfer Acetaminophen [Tylenol 325mg (*)] 650 mg PO Q4H PRN 01/15/16 [Last Taken ] Terazosin HCl [Hytrin 5 MG (*)] 10 mg PO DAILY 01/15/16 [Last Taken 01/15/16] Albuterol [Proventil Inhaler HFA (*)] 1 - 2 puffs IH Q4H #1 mdi 01/20/16 [Last Taken Unknown] Tiotropium Inhaler [Spiriva Handihaler] 18 mcg IH DAILY #1 mdi 01/20/16 [Last Taken Unknown] Furosemide [Lasix 40 MG (*)] 40 mg PO DAILY 03/25/16 [Last Taken Unknown] Albuterol [Proventil Neb] 3 ml IH QID PRN 03/26/16 [Last Taken Unknown] Allopurinol [Allopurinol 300 MG (RX)] 300 mg PO DAILY 03/26/16 [Last Taken Unknown] Docusate Sodium [Colace 100 MG (*)] 100 mg PO BID 03/26/16 [Last Taken Unknown] Magnesium Hydroxide [Milk of Magnesia] 30 ml PO PRN PRN 03/26/16 [Last Taken Unknown] Metoprolol Tartrate [Lopressor 50 mg (*)] 50 mg PO BID 03/26/16 [Last Taken Unknown] Potassium Cl [Klor-Con 10 meq (RX)] 10 meq PO DAILY 03/26/16 [Last Taken Unknown ] predniSONE [Prednisone] 10 mg PO DAILY 03/26/16 [Last Taken Unknown] Aspirin EC [Aspirin EC 81 mg (*)] 81 mg PO DAILY #0 tab 04/03/16 [Last Taken Unknown] Azithromycin [Zithromax] 500 mg PO DAILY #8 tab 04/03/16 [Last Taken Unknown] Digoxin [Lanoxin 250 mcg (RX)] 250 mcg PO DAILY10 #0 tab 04/03/16 [Last Taken Unknown] Diltiazem Cd [Cardizem ER 120 MG (*)] 120 mg PO DAILY #30 cap 04/03/16 [Last Taken Unknown] Detention Antibiotics: stop his azithromycin after 04/06/16 dose Discharge Medications: Refer to the Discharge Home Medication list for PRN reason. - Orders Services needed: Registered Nurse, Certified Information Technology Coordinator, Master Housekeeping Aid , Physical Therapy, Occupational Therapy Oxygen: yes Diet Recommendation: sodium restricted Diet Texture: Regular Texture Diet Weigh Patient: weekly Additional: Needs digoxin level 04/10/16. Will need an appointment with Dr Cody Hanley at [facility] in 2-4 weeks. Has an appointment at [facility] 04/06/16 3 pm - Labs/Radiology Other Lab Name, Date and Time: Digoxin level 04/10/16 - Follow Up Care Current Providers and Referrals: KAILASH SORIA [Primary Care Provider] - As per Instructions Archie Crystal MD [Medical Doctor] - Cody Hanley MD [Medical Doctor] -
--- NOTE | 2016-04-03 11:37 | PDDCSUM ---
Discharge Summary Discharge Summary: DISCHARGE DIAGNOSES: # acute hypoxemic respiratory failure # acute COPD exacerbation, the likely chronic bronchitis # diastolic congestive heart failure, now at compensated volume status after diuresis # chronic persistent atrial fibrillation CONSULTANTS: Dr. Cody Olea PROCEDURES: CT scan of chest showing no pulmonary embolism Echocardiogram showing excellent ejection fraction, left atrial dilation, mild pulmonary hypertension HOSPITAL COURSE SUMMARY: This patient with chronic lung and heart disease comes in with shortness of breath worse than usual. He had rapid atrial fibrillation with a history of atrial fibrillation. Rate control medicines were added her with diltiazem and digoxin and he has adequate rate control here with that and that is improved symptoms. He also appeared to have some exacerbation of COPD. This was treated with steroid, bronchodilators, and addition of azithromycin. At this point his COPD is back at his baseline. He is up walking in the hallway without difficulty eating well and sleeping well. He is using his baseline level of home oxygen. He appears stable for discharge from hospital from a cardiopulmonary standpoint. However due to some mild weakness and gait instability he is being transferred to [facility] facility for further rehabilitation before going back home. Home oxygen is already in place. MEDICATION CHANGES: Admission of digoxin, diltiazem, and a short course of azithromycin FOLLOW-UP PLAN: He is transferred from here to [facility] for further rehabilitation Follow-up appointments with doctors Moisés Olea and Cody Hanley are planned in clinics Greater than 35 minutes bedside and care coordination time today
[2016-04-03] MEDS: DIGOXIN 250 MCG TAB PO SCH (11:52)
== END 2016-04-03 14:54 | DRG 190 ==
LOC: F2W 21:10 → OBSVTOIN 21:30
PROVIDERS: ADMIT Internal Medicine; ATTEND Internal Medicine
DX: J44.1 Chronic obstructive pulmonary disease with (acute) exacerbation (principal); I50.33 Acute on chronic diastolic (congestive) heart failure; I48.2 Chronic atrial fibrillation; J96.01 Acute respiratory failure with hypoxia; I95.9 Hypotension, unspecified; I25.10 Atherosclerotic heart disease of native coronary artery without angina pectoris; D64.9 Anemia, unspecified; Z95.5 Presence of coronary angioplasty implant and graft; Z95.2 Presence of prosthetic heart valve; Z95.0 Presence of cardiac pacemaker; Z79.01 Long term (current) use of anticoagulants; Z87.891 Personal history of nicotine dependence
CPT/HCPCS: 96365; 97116-GP; 97162-GP; 97165-GO; 97530-GO; 97535-GO; G8978-GP-CJ; G8979-GP-CI; G8987-GO-CK; G8988-GO-CI; G8989-GO-CI; J1650; Q9967